=== PATIENT | female | born 1960 | race African-American/Black ===

== ENCOUNTER 2017-06-01 13:24 | Inpatient (IN) | payer MEDICAID ==
[~2017-06-01] VITALS: Ht 165.1 cm; Wt 90.4 kg
[~2017-06-01 13:24] MED LIST: AMLO10TA2 PO; ENA2.5T GT; ENAL-3; HYDR-2601 PO; LACT10SO32; METO25TA62; NOR10T; POTASSIUM CL; TRIA50TA2; ZOLP10TA6
[2017-06-01] MEDS ORDERED: ASPirin 81 mg TAB PO ONE (13:45)
[2017-06-01] MEDS ORDERED: MORPHINE SULF INJ 2 MG/ML SYRINGE 1ML IV ONE ×2 (14:00→18:15)
[2017-06-01] MEDS ORDERED: ONDANSETRON HCL 4 MG/2 ML VIAL IV ONE ×2 (14:00→18:15)
[2017-06-01 14:32] LABS: Basophils # (auto) 0.1 uL; Basophils % (auto) 0.5 % (0.0-2.0); Eosinophils # (auto) 0.1 uL; Eosinophils % (auto) 0.4 % (0.0-7.0); Hematocrit 36.9 % (36.0-46.0); Lymphocytes # (auto) 0.8 uL; Lymphocytes % (auto) 3.9 % (10.0-50.0); Mean Corpuscular Hemoglobin 27.9 pg (28.0-32.0); Mean Corpuscular Hgb Conc. 32.6 g/dL (32.0-36.0); Mean Corpuscular Volume 85.8 fL (80.0-100.0); Monocytes # (auto) 0.6 uL; Monocytes % (auto) 3.1 % (0.0-12.0); Neutrophils # (auto) 17.8 uL; Neutrophils % (auto) 92.1 % (37.0-80.0); Platelet Count (auto) 294 10^3/uL (140-450); Red Cell Distribution Width 14.5 % (11.8-14.3); White Blood Cell 19.3 10^3/uL (4.4-10.8)
[2017-06-01 14:58] LABS: Partial Thromboplastin Time 28.7 sec (22.64-33.71); Prothrombin Time 10.9 sec (9.37-12.3)
[2017-06-01 15:00] LABS: Urine Bacteria FEW /hpf (None Seen); Urine Blood 1+ /uL (Negative); Urine Mucus FEW (None Seen); Urine Specific Gravity 1.023 (1.001-1.035); Urine WBC 13 /hpf (0 - 5)
[2017-06-01 15:03] LABS: Albumin 2.6 g/dL (3.4-5.0); BUN/Creatinine Ratio 18.6; Bilirubin, Total 0.4 mg/dL (0.2-1.0); Calcium 9.1 mg/dL (8.5-10.1); Magnesium 2.4 mg/dL (1.6-2.6); Total Protein 8.2 g/dL (6.4-8.2)
[2017-06-01 15:20] LABS: Potassium 2.9 mmol/L (3.5-5.1)
[2017-06-01] MEDS ORDERED: IOHEXOL 350 MG/ML 100ML IJ ONE (15:24)
[2017-06-01] MEDS ORDERED: POTASSIUM CHL 20 Meq TABLET PO ONE ×3 (15:30→18:15)
[2017-06-01] MEDS ORDERED: SODIUM CHLORIDE 0.9% 1,000 ML IV ONE (15:30)
[2017-06-01] MEDS ORDERED: cefTRIAXone 1GM/10ml IVPUSH 10 ML IV ONE (15:30)
[2017-06-01] MEDS ORDERED: ALUM & MAG HYDROX-SIMETH LIQ(MAALOX) 30 ML PO PRN (18:30)
[2017-06-01] MEDS ORDERED: ONDANSETRON HCL 4 MG/2 ML VIAL IV PRN (18:30)
[2017-06-01] MEDS ORDERED: MORPHINE SULFATE 10 MG/ML INJ 1ML SDV IV PRN (18:30)
[2017-06-01] MEDS ORDERED: LORazepam 0.5 MG TAB PO PRN (18:30)
[2017-06-01] MEDS ORDERED: METOCLOPRAMIDE HCL 5MG/ml INJ 2ml VIAL IV PRN (18:30)
[2017-06-01] MEDS ORDERED: amLODIPine BESYLATE 5 MG TAB PO ONE (19:15)
[2017-06-01] MEDS ORDERED: ENALAPRIL MALEATE 10 MG TAB PO ONE (19:15)
[2017-06-01] MEDS ORDERED: TRIAMTERENE/HCTZ 75/50MG TABLET PO ONE (19:15)
[2017-06-01] MEDS ORDERED: METOPROLOL SUCCINATE XL 50 MG TAB PO ONE (19:15)
[2017-06-01 21:38] VITALS: BP 125/52
[2017-06-01 22:00] VITALS: BP 89/44
[2017-06-01] MEDS: MORPHINE SULFATE 10 MG/ML INJ 1ML SDV IV PRN (22:41)
[2017-06-01] MEDS ORDERED: CHOL20007 OR (23:51)
[2017-06-02] MEDS: MORPHINE SULFATE 10 MG/ML INJ 1ML SDV IV PRN ×2 (02:54→07:20)
[2017-06-02 05:00] VITALS: BP 100/64
[2017-06-02 07:25] LABS: Basophils # (auto) 0 uL; Basophils % (auto) 0.3 % (0.0-2.0); Eosinophils # (auto) 0.1 uL; Eosinophils % (auto) 0.3 % (0.0-7.0); Hematocrit 30.1 % (36.0-46.0); Lymphocytes # (auto) 0.7 uL; Lymphocytes % (auto) 4.5 % (10.0-50.0); Mean Corpuscular Hemoglobin 28.4 pg (28.0-32.0); Mean Corpuscular Hgb Conc. 33.2 g/dL (32.0-36.0); Mean Corpuscular Volume 85.5 fL (80.0-100.0); Monocytes % (auto) 6.4 % (0.0-12.0); Neutrophils # (auto) 14.6 uL; Neutrophils % (auto) 88.5 % (37.0-80.0); Platelet Count (auto) 252 10^3/uL (140-450); Red Blood Cells 3.52 10^6/uL (4.0-5.20); Red Cell Distribution Width 14.1 % (11.8-14.3); White Blood Cell 16.5 10^3/uL (4.4-10.8)
[2017-06-02 07:35] LABS: Albumin 2.1 g/dL (3.4-5.0); Calcium 8.6 mg/dL (8.5-10.1); Potassium 3.3 mmol/L (3.5-5.1)
[2017-06-02 07:38] LABS: Bilirubin, Total 0.5 mg/dL (0.2-1.0); Total Protein 6.9 g/dL (6.4-8.2)
[2017-06-02 08:19] VITALS: BP 114/86
[2017-06-02] MEDS: ACETAMINOPHEN 325 MG TAB PO PRN (08:25)
[2017-06-02] MEDS: ENALAPRIL MALEATE 10 MG TAB PO SCH (10:00)
[2017-06-02] MEDS: amLODIPine BESYLATE 5 MG TAB PO SCH (10:00)
[2017-06-02] MEDS: METOPROLOL SUCCINATE XL 50 MG TAB PO SCH (10:00)
[2017-06-02] MEDS: cefTRIAXone 1GM/10ml IVPUSH 10 ML IV SCH (10:17)
[2017-06-02] MEDS: POTASSIUM CHL 10 Meq TABLET PO SCH (10:18)
[2017-06-02] MEDS: TRIAMTERENE/HCTZ 75/50MG TABLET PO SCH (10:19)
[2017-06-02] MEDS: HYDROmorphone HCL 2 MG/ML VL IV PRN ×3 (11:33→19:38)
[2017-06-02] MEDS: ISOSORBIDE MONONITRATE 60 MG TAB PO SCH (11:41)
[2017-06-02 12:55] VITALS: BP 106/70
[2017-06-02] MEDS ORDERED: SODIUM CHLORIDE 0.9% 1,000 ML IV SCH (14:43)
[2017-06-02] MEDS ORDERED: diphenhdrAMINE HCL 50 MG/1 ML VL IV ONE (14:45)
[2017-06-02] MEDS: MULTIPLE VITAMIN TAB PO SCH (16:39)
[2017-06-02 16:59] VITALS: BP 113/65
[2017-06-02] MEDS: PRO-STAT 64 30ML PO SCH (18:00)
[2017-06-02] MEDS: ASCORBIC ACID 500 MG TAB PO SCH (21:22)
[2017-06-02 22:13] VITALS: BP 107/59
[2017-06-02] MEDS: TEMAZEPAM 15 MG CAP PO PRN (22:26)
[2017-06-03] MEDS: HYDROmorphone HCL 2 MG/ML VL IV PRN ×6 (00:01→21:00)
[2017-06-03 05:27] VITALS: BP 114/75
[2017-06-03] MEDS: SODIUM CHLORIDE 0.9% 1,000 ML IV SCH (06:07)
[2017-06-03] MEDS: PRO-STAT 64 30ML PO SCH ×2 (08:00→18:00)
[2017-06-03 09:09] VITALS: BP 94/50
[2017-06-03 09:13] LABS: Basophils # (auto) 0.1 uL; Basophils % (auto) 0.6 % (0.0-2.0); Eosinophils # (auto) 0.1 uL; Eosinophils % (auto) 1.4 % (0.0-7.0); Hematocrit 31.3 % (36.0-46.0); Hemoglobin 10.4 g/dL (12.2-16.2); Lymphocytes # (auto) 0.8 uL; Lymphocytes % (auto) 7.8 % (10.0-50.0); Mean Corpuscular Hemoglobin 28.4 pg (28.0-32.0); Mean Corpuscular Hgb Conc. 33.1 g/dL (32.0-36.0); Mean Corpuscular Volume 85.8 fL (80.0-100.0); Monocytes % (auto) 9.8 % (0.0-12.0); Neutrophils # (auto) 8.6 uL; Neutrophils % (auto) 80.4 % (37.0-80.0); Platelet Count (auto) 259 10^3/uL (140-450); Red Blood Cells 3.66 10^6/uL (4.0-5.20); Red Cell Distribution Width 14.3 % (11.8-14.3); White Blood Cell 10.7 10^3/uL (4.4-10.8)
[2017-06-03 09:28] LABS: Albumin 2.1 g/dL (3.4-5.0); BUN/Creatinine Ratio 18.4; Bilirubin, Total 0.3 mg/dL (0.2-1.0); Calcium 8.7 mg/dL (8.5-10.1); Potassium 3.3 mmol/L (3.5-5.1); Total Protein 7.3 g/dL (6.4-8.2)
[2017-06-03] MEDS: ENALAPRIL MALEATE 10 MG TAB PO SCH (10:00)
[2017-06-03] MEDS: ISOSORBIDE MONONITRATE 60 MG TAB PO SCH (10:00)
[2017-06-03] MEDS: METOPROLOL SUCCINATE XL 50 MG TAB PO SCH (10:00)
[2017-06-03] MEDS: amLODIPine BESYLATE 5 MG TAB PO SCH (10:00)
[2017-06-03] MEDS: TRIAMTERENE/HCTZ 75/50MG TABLET PO SCH (10:00)
[2017-06-03] MEDS: MULTIPLE VITAMIN TAB PO SCH (10:05)
[2017-06-03] MEDS: POTASSIUM CHL 10 Meq TABLET PO SCH (10:05)
[2017-06-03] MEDS: ASCORBIC ACID 500 MG TAB PO SCH ×2 (10:07→21:01)
[2017-06-03] MEDS: cefTRIAXone 1GM/10ml IVPUSH 10 ML IV SCH (10:10)
[2017-06-03] MEDS: HYDROcodone-ACET 5/325MG TAB PO PRN ×3 (10:18→19:49)
[2017-06-03 11:56] VITALS: BP 110/55
[2017-06-03 16:55] VITALS: BP 99/49
[2017-06-03 23:11] VITALS: BP 92/56
[2017-06-04] MEDS: HYDROcodone-ACET 5/325MG TAB PO PRN (00:22)
[2017-06-04] MEDS: TEMAZEPAM 15 MG CAP PO PRN ×2 (00:23→23:25)
[2017-06-04] MEDS: SODIUM CHLORIDE 0.9% 1,000 ML IV SCH ×2 (02:00→22:00)
[2017-06-04 02:21] VITALS: BP 103/58
[2017-06-04] MEDS: HYDROmorphone HCL 2 MG/ML VL IV PRN ×5 (02:30→21:06)
[2017-06-04 05:20] VITALS: BP 98/56
[2017-06-04 07:19] LABS: Basophils # (auto) 0 uL; Basophils % (auto) 0.3 % (0.0-2.0); Eosinophils # (auto) 0.2 uL; Eosinophils % (auto) 1.9 % (0.0-7.0); Hematocrit 30.3 % (36.0-46.0); Lymphocytes # (auto) 1.3 uL; Mean Corpuscular Hemoglobin 28.2 pg (28.0-32.0); Mean Corpuscular Hgb Conc. 32.9 g/dL (32.0-36.0); Mean Corpuscular Volume 85.8 fL (80.0-100.0); Monocytes % (auto) 9.5 % (0.0-12.0); Neutrophils # (auto) 7.8 uL; Neutrophils % (auto) 75.3 % (37.0-80.0); Platelet Count (auto) 253 10^3/uL (140-450); Red Blood Cells 3.53 10^6/uL (4.0-5.20); Red Cell Distribution Width 14.6 % (11.8-14.3); White Blood Cell 10.3 10^3/uL (4.4-10.8)
[2017-06-04 07:27] VITALS: BP 103/68
[2017-06-04 07:39] LABS: Albumin 1.9 g/dL (3.4-5.0); BUN/Creatinine Ratio 29.4; Bilirubin, Total 0.2 mg/dL (0.2-1.0); Calcium 8.5 mg/dL (8.5-10.1); Potassium 3.5 mmol/L (3.5-5.1)
[2017-06-04] MEDS: amLODIPine BESYLATE 5 MG TAB PO SCH (10:00)
[2017-06-04] MEDS ORDERED: ANGIOMAX 250 MG VIAL IV ONE (10:36)
[2017-06-04] MEDS ORDERED: MIDAZOLAM HCL 1MG/1ML-2 ML VIAL ONE (10:37)
[2017-06-04] MEDS ORDERED: fentaNYL CITRATE 100 MCG/2 ML VL ONE (10:37)
[2017-06-04] MEDS: PRO-STAT 64 30ML PO SCH ×2 (11:19→18:23)
[2017-06-04] MEDS: cefTRIAXone 1GM/10ml IVPUSH 10 ML IV SCH (11:20)
[2017-06-04] MEDS: METOPROLOL SUCCINATE XL 50 MG TAB PO SCH (11:21)
[2017-06-04] MEDS: POTASSIUM CHL 10 Meq TABLET PO SCH (11:22)
[2017-06-04] MEDS: ISOSORBIDE MONONITRATE 60 MG TAB PO SCH (11:22)
[2017-06-04] MEDS: MULTIPLE VITAMIN TAB PO SCH (11:23)
[2017-06-04] MEDS: ASCORBIC ACID 500 MG TAB PO SCH ×2 (11:23→23:25)
[2017-06-04] MEDS: TRIAMTERENE/HCTZ 75/50MG TABLET PO SCH (11:24)
[2017-06-04] MEDS: ENALAPRIL MALEATE 10 MG TAB PO SCH (11:26)
[2017-06-04 11:42] VITALS: BP 138/85
[2017-06-04 15:08] LABS: Free T4 (Free Thyroxine) 1.05 ng/dL (0.89-1.76); T3 Total 0.6 ng/mL (0.60-1.81)
[2017-06-04 15:18] LABS: BUN/Creatinine Ratio 19.5; Calcium 8.6 mg/dL (8.5-10.1); Potassium 3.7 mmol/L (3.5-5.1)
[2017-06-04 16:31] VITALS: BP 98/54
[2017-06-04 22:00] VITALS: BP 119/59
[2017-06-04] MEDS: ACETAMINOPHEN 325 MG TAB PO PRN (23:25)
[2017-06-05] MEDS: HYDROmorphone HCL 2 MG/ML VL IV PRN ×5 (04:20→20:53)
[2017-06-05 05:00] VITALS: BP 88/55
[2017-06-05] MEDS: NITROGLYCERIN 0.4 MG SL TAB SL PRN ×2 (07:06→07:24)
[2017-06-05 07:29] VITALS: BP 106/63
[2017-06-05] MEDS: PRO-STAT 64 30ML PO SCH ×2 (08:00→18:17)
[2017-06-05] MEDS: ASCORBIC ACID 500 MG TAB PO SCH ×2 (09:59→22:36)
[2017-06-05] MEDS: MULTIPLE VITAMIN TAB PO SCH (09:59)
[2017-06-05] MEDS: cefTRIAXone 1GM/10ml IVPUSH 10 ML IV SCH (09:59)
[2017-06-05] MEDS: POTASSIUM CHL 10 Meq TABLET PO SCH (09:59)
[2017-06-05] MEDS: TRIAMTERENE/HCTZ 75/50MG TABLET PO SCH (10:00)
[2017-06-05] MEDS: METOPROLOL SUCCINATE XL 50 MG TAB PO SCH (10:00)
[2017-06-05] MEDS: ENALAPRIL MALEATE 10 MG TAB PO SCH (10:00)
[2017-06-05] MEDS: amLODIPine BESYLATE 5 MG TAB PO SCH (10:01)
[2017-06-05] MEDS: ISOSORBIDE MONONITRATE 60 MG TAB PO SCH (10:01)
[2017-06-05 12:07] VITALS: BP 92/43
[2017-06-05 14:20] LABS: Urine Bacteria NONE SEEN /hpf (None Seen); Urine Blood 1+ /uL (Negative); Urine Mucus FEW (None Seen); Urine Specific Gravity 1.021 (1.001-1.035); Urine WBC 13 /hpf (0 - 5)
[2017-06-05] MEDS: NICOTINE 21MG/24 HR TOPICAL PATCH TD SCH (14:34)
[2017-06-05] MEDS: HYDROcodone-ACET 5/325MG TAB PO PRN ×2 (14:52→19:45)
[2017-06-05 16:39] VITALS: BP 92/52
[2017-06-05] MEDS: SODIUM CHLORIDE 0.9% 1,000 ML IV SCH (18:17)
[2017-06-05 22:00] VITALS: BP 123/68
[2017-06-05] MEDS: TEMAZEPAM 15 MG CAP PO PRN (22:36)
[2017-06-06] MEDS: HYDROmorphone HCL 2 MG/ML VL IV PRN ×5 (00:54→20:52)
[2017-06-06 05:00] VITALS: BP 95/61
[2017-06-06 06:01] LABS: Cholesterol 121 mg/dL (< 200); HDL Cholesterol 16 mg/dL (40-59); LDL Cholesterol 85 mg/dL (< 100); Triglycerides 186 mg/dL (< 150)
[2017-06-06 08:00] VITALS: BP 96/58
[2017-06-06] MEDS: PRO-STAT 64 30ML PO SCH ×2 (08:00→18:02)
[2017-06-06] MEDS: cefTRIAXone 1GM/10ml IVPUSH 10 ML IV SCH (09:33)
[2017-06-06] MEDS: ISOSORBIDE MONONITRATE 60 MG TAB PO SCH (09:34)
[2017-06-06] MEDS: ENALAPRIL MALEATE 10 MG TAB PO SCH (10:00)
[2017-06-06] MEDS: METOPROLOL SUCCINATE XL 50 MG TAB PO SCH (10:00)
[2017-06-06] MEDS: MULTIPLE VITAMIN TAB PO SCH (10:00)
[2017-06-06] MEDS: ASCORBIC ACID 500 MG TAB PO SCH ×2 (10:00→21:57)
[2017-06-06] MEDS: amLODIPine BESYLATE 5 MG TAB PO SCH (10:00)
[2017-06-06] MEDS: POTASSIUM CHL 10 Meq TABLET PO SCH (10:00)
[2017-06-06] MEDS: TRIAMTERENE/HCTZ 75/50MG TABLET PO SCH (10:00)
[2017-06-06] MEDS: NITROGLYCERIN 0.4 MG SL TAB SL PRN (10:48)
[2017-06-06] MEDS: NICOTINE 21MG/24 HR TOPICAL PATCH TD SCH (10:54)
[2017-06-06 11:50] VITALS: BP 106/49
[2017-06-06] MEDS ORDERED: LIDOCAINE 2%HCL (LOCAL ANESTH.) INJ 20ML MDV ONE (11:57)
[2017-06-06] MEDS ORDERED: IOHEXOL 350 MG/ML 100ML IJ ONE (11:57)
[2017-06-06] MEDS ORDERED: ANGIOMAX 250 MG VIAL IV ONE (12:47)
[2017-06-06] MEDS ORDERED: fentaNYL CITRATE 100 MCG/2 ML VL ONE (12:48)
[2017-06-06] MEDS ORDERED: SODIUM CHL 0.9% 0 ML ONE (12:48)
[2017-06-06] MEDS ORDERED: MIDAZOLAM HCL 1MG/1ML-2 ML VIAL ONE (12:48)
[2017-06-06] MEDS ORDERED: VERAPAMIL 2.5MG/ML INJ 2ML VIAL IV ONE (13:06)
[2017-06-06] MEDS ORDERED: VANCOMYCIN PER PHARMACY 0 MG IV SCH (14:45)
[2017-06-06 17:10] VITALS: BP 116/74
[2017-06-06] MEDS: VANCOMYCIN 750 MG in D5W 5% 250 ML IV SCH (18:24)
[2017-06-06 21:56] VITALS: BP 102/53
[2017-06-06] MEDS: DOCUSATE SOD 100 MG CAP PO PRN (21:57)
[2017-06-06] MEDS: ATORVASTATIN 20 MG TAB PO SCH (21:57)
[2017-06-06] MEDS: TEMAZEPAM 15 MG CAP PO PRN (22:03)
[2017-06-07] MEDS: HYDROmorphone HCL 2 MG/ML VL IV PRN ×6 (01:53→22:40)
[2017-06-07] MEDS: VANCOMYCIN 750 MG in D5W 5% 250 ML IV SCH ×2 (01:53→11:08)
[2017-06-07 04:28] VITALS: BP 115/56
[2017-06-07 06:21] LABS: Basophils # (auto) 0 uL; Basophils % (auto) 0.4 % (0.0-2.0); Eosinophils # (auto) 0.2 uL; Eosinophils % (auto) 1.8 % (0.0-7.0); Hematocrit 30.8 % (36.0-46.0); Lymphocytes # (auto) 2.1 uL; Lymphocytes % (auto) 16.4 % (10.0-50.0); Mean Corpuscular Hemoglobin 27.8 pg (28.0-32.0); Mean Corpuscular Hgb Conc. 32.6 g/dL (32.0-36.0); Mean Corpuscular Volume 85.3 fL (80.0-100.0); Monocytes # (auto) 1.4 uL; Monocytes % (auto) 10.8 % (0.0-12.0); Neutrophils # (auto) 8.8 uL; Neutrophils % (auto) 70.6 % (37.0-80.0); Nucleated Red Blood Cells % 0.1 %; Platelet Count (auto) 232 10^3/uL (140-450); Red Blood Cells 3.61 10^6/uL (4.0-5.20); Red Cell Distribution Width 14.9 % (11.8-14.3); White Blood Cell 12.5 10^3/uL (4.4-10.8)
[2017-06-07] MEDS: PRO-STAT 64 30ML PO SCH ×2 (08:06→18:10)
[2017-06-07 08:10] VITALS: BP 103/64
[2017-06-07] MEDS: ENALAPRIL MALEATE 10 MG TAB PO SCH (10:00)
[2017-06-07] MEDS: amLODIPine BESYLATE 5 MG TAB PO SCH (10:15)
[2017-06-07] MEDS: ASCORBIC ACID 500 MG TAB PO SCH ×2 (10:15→21:57)
[2017-06-07] MEDS: ISOSORBIDE MONONITRATE 60 MG TAB PO SCH (10:15)
[2017-06-07] MEDS: MULTIPLE VITAMIN TAB PO SCH (10:15)
[2017-06-07] MEDS: TRIAMTERENE/HCTZ 75/50MG TABLET PO SCH (10:15)
[2017-06-07] MEDS: POTASSIUM CHL 10 Meq TABLET PO SCH (10:16)
[2017-06-07] MEDS: NICOTINE 21MG/24 HR TOPICAL PATCH TD SCH (10:17)
[2017-06-07] MEDS: METOPROLOL SUCCINATE XL 50 MG TAB PO SCH (10:17)
[2017-06-07] MEDS: cefTRIAXone 1GM/10ml IVPUSH 10 ML IV SCH (11:08)
[2017-06-07 12:35] VITALS: BP 120/72
[2017-06-07] MEDS ORDERED: CLINDAMYCIN 600MG IV 50 ML IV ONE (15:30)
[2017-06-07] MEDS: DOCUSATE SOD 100 MG CAP PO PRN (16:46)
[2017-06-07 16:58] VITALS: BP 105/58
[2017-06-07] MEDS: ATORVASTATIN 20 MG TAB PO SCH (21:57)
[2017-06-07] MEDS: CLINDAMYCIN 600MG IV 50 ML IV SCH (21:57)
[2017-06-07 22:00] VITALS: BP 105/60
[2017-06-07] MEDS: TEMAZEPAM 15 MG CAP PO PRN (22:40)
[2017-06-08] MEDS: HYDROmorphone HCL 2 MG/ML VL IV PRN ×5 (03:32→20:09)
[2017-06-08] MEDS: CLINDAMYCIN 600MG IV 50 ML IV SCH (05:33)
[2017-06-08 05:36] VITALS: BP 112/60
[2017-06-08 08:46] VITALS: BP 146/90
[2017-06-08] MEDS: PRO-STAT 64 30ML PO SCH ×2 (09:03→18:04)
[2017-06-08 09:04] VITALS: BP 129/80
[2017-06-08] MEDS ORDERED: MAGNESIUM CITRATE SOLUTION 300 ML BTL PO ONE (10:00)
[2017-06-08] MEDS: ceFAZolin 1GM/50ML 50 ML IV SCH ×3 (10:01→21:19)
[2017-06-08] MEDS: POTASSIUM CHL 10 Meq TABLET PO SCH (10:02)
[2017-06-08] MEDS: ISOSORBIDE MONONITRATE 60 MG TAB PO SCH (10:02)
[2017-06-08] MEDS: MULTIPLE VITAMIN TAB PO SCH (10:02)
[2017-06-08] MEDS: ASCORBIC ACID 500 MG TAB PO SCH ×2 (10:02→21:19)
[2017-06-08] MEDS: DOCUSATE SOD 100 MG CAP PO PRN (10:02)
[2017-06-08] MEDS: TRIAMTERENE/HCTZ 75/50MG TABLET PO SCH (10:03)
[2017-06-08] MEDS: amLODIPine BESYLATE 5 MG TAB PO SCH (10:03)
[2017-06-08] MEDS: METOPROLOL SUCCINATE XL 50 MG TAB PO SCH (10:04)
[2017-06-08] MEDS: ENALAPRIL MALEATE 10 MG TAB PO SCH (10:04)
[2017-06-08] MEDS: NICOTINE 21MG/24 HR TOPICAL PATCH TD SCH (10:05)
[2017-06-08 13:06] VITALS: BP 111/71
[2017-06-08 17:02] VITALS: BP 111/71
[2017-06-08] MEDS: ACETAMINOPHEN 325 MG TAB PO PRN (17:09)
[2017-06-08] MEDS: DOCUSATE SOD 100 MG CAP PO SCH (21:12)
[2017-06-08] MEDS: ATORVASTATIN 20 MG TAB PO SCH (21:19)
[2017-06-08 21:32] VITALS: BP 95/58
[2017-06-09] MEDS: HYDROmorphone HCL 2 MG/ML VL IV PRN ×6 (00:16→20:45)
[2017-06-09] MEDS: ceFAZolin 1GM/50ML 50 ML IV SCH ×4 (04:18→21:06)
[2017-06-09 04:50] VITALS: BP 94/53
[2017-06-09 08:00] VITALS: BP 126/80
[2017-06-09 08:31] VITALS: BP 126/80
[2017-06-09] MEDS: DOCUSATE SOD 100 MG CAP PO SCH ×2 (10:00→21:01)
[2017-06-09] MEDS: TRIAMTERENE/HCTZ 75/50MG TABLET PO SCH (10:00)
[2017-06-09] MEDS: ISOSORBIDE MONONITRATE 60 MG TAB PO SCH (10:28)
[2017-06-09] MEDS: ASCORBIC ACID 500 MG TAB PO SCH ×2 (10:28→21:06)
[2017-06-09] MEDS: amLODIPine BESYLATE 5 MG TAB PO SCH (10:29)
[2017-06-09] MEDS: ENALAPRIL MALEATE 10 MG TAB PO SCH (10:29)
[2017-06-09] MEDS: MULTIPLE VITAMIN TAB PO SCH (10:29)
[2017-06-09] MEDS: POTASSIUM CHL 10 Meq TABLET PO SCH (10:30)
[2017-06-09] MEDS: METOPROLOL SUCCINATE XL 50 MG TAB PO SCH (10:30)
[2017-06-09] MEDS: NICOTINE 21MG/24 HR TOPICAL PATCH TD SCH (10:30)
[2017-06-09] MEDS: PRO-STAT 64 30ML PO SCH ×2 (10:31→19:00)
[2017-06-09 12:59] VITALS: BP 103/56
[2017-06-09] MEDS ORDERED: methylPREDNISolone SOD SUCC 125 MG/2 ML VL ONE (13:57)
[2017-06-09] MEDS ORDERED: diphenhdrAMINE HCL 50 MG/1 ML VL ONE (13:57)
[2017-06-09] MEDS ORDERED: methylPREDNISolone SOD SUCC 125 MG/2 ML VL IV ONE (14:00)
[2017-06-09] MEDS ORDERED: diphenhdrAMINE HCL 50 MG/1 ML VL IV ONE (14:00)
[2017-06-09] MEDS: diphenhdrAMINE HCL 50 MG/1 ML VL IV PRN (15:14)
[2017-06-09 17:23] VITALS: BP 97/64
[2017-06-09] MEDS: ATORVASTATIN 20 MG TAB PO SCH (21:06)
[2017-06-09 22:00] VITALS: BP 101/43
[2017-06-10] MEDS: HYDROmorphone HCL 2 MG/ML VL IV PRN ×6 (00:48→21:19)
[2017-06-10] MEDS: ceFAZolin 1GM/50ML 50 ML IV SCH ×4 (04:57→21:30)
[2017-06-10 05:00] VITALS: BP 105/61
[2017-06-10 06:44] LABS: Basophils # (auto) 0 uL; Basophils % (auto) 0.2 % (0.0-2.0); Eosinophils # (auto) 0 uL; Hematocrit 38.2 % (36.0-46.0); Hemoglobin 12.5 g/dL (12.2-16.2); Lymphocytes # (auto) 1.6 uL; Lymphocytes % (auto) 5.8 % (10.0-50.0); Mean Corpuscular Hemoglobin 27.6 pg (28.0-32.0); Mean Corpuscular Hgb Conc. 32.6 g/dL (32.0-36.0); Mean Corpuscular Volume 84.7 fL (80.0-100.0); Monocytes # (auto) 0.8 uL; Monocytes % (auto) 2.7 % (0.0-12.0); Neutrophils # (auto) 25.2 uL; Neutrophils % (auto) 91.3 % (37.0-80.0); Platelet Count (auto) 388 10^3/uL (140-450); Red Blood Cells 4.51 10^6/uL (4.0-5.20); White Blood Cell 27.6 10^3/uL (4.4-10.8)
[2017-06-10 08:00] VITALS: BP 152/59
[2017-06-10 08:27] VITALS: BP 152/59
[2017-06-10] MEDS: TRIAMTERENE/HCTZ 75/50MG TABLET PO SCH (09:01)
[2017-06-10] MEDS: POTASSIUM CHL 10 Meq TABLET PO SCH (09:01)
[2017-06-10] MEDS: METOPROLOL SUCCINATE XL 50 MG TAB PO SCH (09:02)
[2017-06-10] MEDS: ENALAPRIL MALEATE 10 MG TAB PO SCH (09:02)
[2017-06-10] MEDS: amLODIPine BESYLATE 5 MG TAB PO SCH (09:03)
[2017-06-10] MEDS: MULTIPLE VITAMIN TAB PO SCH (09:03)
[2017-06-10] MEDS: ISOSORBIDE MONONITRATE 60 MG TAB PO SCH (09:03)
[2017-06-10] MEDS: ASCORBIC ACID 500 MG TAB PO SCH ×2 (09:03→21:31)
[2017-06-10] MEDS: NICOTINE 21MG/24 HR TOPICAL PATCH TD SCH (09:04)
[2017-06-10] MEDS: PRO-STAT 64 30ML PO SCH ×2 (09:08→18:32)
[2017-06-10] MEDS: DOCUSATE SOD 100 MG CAP PO SCH ×2 (10:00→21:30)
[2017-06-10] MEDS: diphenhdrAMINE HCL 50 MG/1 ML VL IV PRN ×3 (10:38→18:32)
[2017-06-10 13:42] VITALS: BP 96/49
[2017-06-10 17:00] VITALS: BP 101/62
[2017-06-10] MEDS: ATORVASTATIN 20 MG TAB PO SCH (21:30)
[2017-06-10 22:00] VITALS: BP 102/63
[2017-06-11] VITALS (7 sets, daily range): BP systolic 86–108; BP diastolic 53–69
[2017-06-11] MEDS: diphenhdrAMINE HCL 50 MG/1 ML VL IV PRN ×2 (00:15→07:26)
[2017-06-11] MEDS: HYDROmorphone HCL 2 MG/ML VL IV PRN ×6 (01:54→23:20)
[2017-06-11] MEDS: ceFAZolin 1GM/50ML 50 ML IV SCH (04:00)
[2017-06-11] MEDS ORDERED: METOPROLOL SUCCINATE XL 50 MG TAB PO SCH (10:00)
[2017-06-11] MEDS: NICOTINE 21MG/24 HR TOPICAL PATCH TD SCH (10:00)
[2017-06-11] MEDS ORDERED: TEMAZEPAM 15 MG CAP PO PRN (10:00)
[2017-06-11] MEDS: DOCUSATE SOD 100 MG CAP PO SCH ×2 (10:00→22:00)
[2017-06-11] MEDS ORDERED: ENALAPRIL MALEATE 10 MG TAB PO SCH (10:00)
[2017-06-11] MEDS: PRO-STAT 64 30ML PO SCH ×2 (10:28→18:00)
[2017-06-11] MEDS: ASCORBIC ACID 500 MG TAB PO SCH ×2 (10:41→22:14)
[2017-06-11] MEDS: MULTIPLE VITAMIN TAB PO SCH (10:41)
[2017-06-11] MEDS: ISOSORBIDE MONONITRATE 60 MG TAB PO SCH (10:42)
[2017-06-11] MEDS: ACETAMINOPHEN 325 MG TAB PO PRN (12:12)
[2017-06-11] MEDS: CLINDAMYCIN 600MG IV 50 ML IV SCH ×2 (12:12→19:59)
[2017-06-11 12:46] LABS: Basophils # (auto) 0 uL; Basophils % (auto) 0.2 % (0.0-2.0); Eosinophils # (auto) 0.1 uL; Eosinophils % (auto) 0.4 % (0.0-7.0); Hemoglobin 10.4 g/dL (12.2-16.2); Lymphocytes # (auto) 1.9 uL; Lymphocytes % (auto) 9.9 % (10.0-50.0); Mean Corpuscular Hemoglobin 27.6 pg (28.0-32.0); Mean Corpuscular Hgb Conc. 32.4 g/dL (32.0-36.0); Mean Corpuscular Volume 85.3 fL (80.0-100.0); Monocytes # (auto) 1.1 uL; Monocytes % (auto) 5.7 % (0.0-12.0); Neutrophils # (auto) 15.7 uL; Neutrophils % (auto) 83.8 % (37.0-80.0); Platelet Count (auto) 360 10^3/uL (140-450); Red Blood Cells 3.75 10^6/uL (4.0-5.20); White Blood Cell 18.7 10^3/uL (4.4-10.8)
[2017-06-11 13:03] LABS: BUN/Creatinine Ratio 37.5; Calcium 8.6 mg/dL (8.5-10.1); Potassium 3.9 mmol/L (3.5-5.1)
[2017-06-11] MEDS: ATORVASTATIN 20 MG TAB PO SCH (22:14)
[2017-06-12] MEDS: CLINDAMYCIN 600MG IV 50 ML IV SCH ×3 (04:20→20:00)
[2017-06-12] MEDS: HYDROmorphone HCL 2 MG/ML VL IV PRN ×5 (04:51→22:20)
[2017-06-12 05:00] VITALS: BP 99/59
[2017-06-12 07:31] LABS: Basophils # (auto) 0 uL; Basophils % (auto) 0.3 % (0.0-2.0); Eosinophils # (auto) 0.1 uL; Hemoglobin 9.9 g/dL (12.2-16.2); Lymphocytes # (auto) 2.6 uL; Lymphocytes % (auto) 18.9 % (10.0-50.0); Mean Corpuscular Hemoglobin 27.4 pg (28.0-32.0); Mean Corpuscular Hgb Conc. 32.1 g/dL (32.0-36.0); Mean Corpuscular Volume 85.4 fL (80.0-100.0); Monocytes % (auto) 7.3 % (0.0-12.0); Neutrophils % (auto) 72.5 % (37.0-80.0); Platelet Count (auto) 351 10^3/uL (140-450); Red Blood Cells 3.63 10^6/uL (4.0-5.20); Red Cell Distribution Width 14.9 % (11.8-14.3); White Blood Cell 13.7 10^3/uL (4.4-10.8)
[2017-06-12 07:54] LABS: BUN/Creatinine Ratio 44.4; Calcium 8.7 mg/dL (8.5-10.1); Potassium 3.8 mmol/L (3.5-5.1)
[2017-06-12 08:00] VITALS: BP 97/63
[2017-06-12] MEDS: PRO-STAT 64 30ML PO SCH ×2 (08:00→17:23)
[2017-06-12] MEDS ORDERED: ALBUMIN 25% 100 ML IV ONE (08:30)
[2017-06-12 08:33] VITALS: BP 97/63
[2017-06-12 08:49] LABS: Albumin 2.1 g/dL (3.4-5.0); Pre Albumin 19.4 mg/dL (20.0-40.0)
[2017-06-12] MEDS: NICOTINE 21MG/24 HR TOPICAL PATCH TD SCH (09:13)
[2017-06-12] MEDS: DOCUSATE SOD 100 MG CAP PO SCH ×2 (09:15→22:14)
[2017-06-12] MEDS: MULTIPLE VITAMIN TAB PO SCH (09:15)
[2017-06-12] MEDS: ASCORBIC ACID 500 MG TAB PO SCH ×2 (09:15→22:15)
[2017-06-12] MEDS: ISOSORBIDE MONONITRATE 60 MG TAB PO SCH (09:15)
[2017-06-12] MEDS: SOD CHL 0.9%/ KCL 40MEQ 1,000 ML IV SCH ×2 (09:16→17:23)
[2017-06-12 12:42] VITALS: BP 101/59
[2017-06-12 16:39] VITALS: BP 111/69
[2017-06-12] MEDS: HYDROcodone-ACET 5/325MG TAB PO PRN (20:07)
[2017-06-12 21:44] VITALS: BP 119/97
[2017-06-12] MEDS: ATORVASTATIN 20 MG TAB PO SCH (22:14)
[2017-06-13] VITALS (7 sets, daily range): BP systolic 90–144; BP diastolic 51–81
[2017-06-13] MEDS ORDERED: HYDROmorphone HCL 2 MG/ML VL ONE (02:42)
[2017-06-13] MEDS: HYDROmorphone HCL 2 MG/ML VL IV PRN (03:00)
[2017-06-13] MEDS: CLINDAMYCIN 600MG IV 50 ML IV SCH ×3 (04:12→20:11)
[2017-06-13] MEDS: SOD CHL 0.9%/ KCL 40MEQ 1,000 ML IV SCH ×2 (04:30→14:38)
[2017-06-13] MEDS ORDERED: GLYCOPYRROLATE 0.2 MG/ML 1ML VIAL IV ONE (07:40)
[2017-06-13] MEDS ORDERED: NEOSTIGMINE 1 MG/ML INJ (10mg/10ML VIAL) IV ONE (07:40)
[2017-06-13] MEDS ORDERED: SUCCINYLCHOLINE CHLORIDE 20 MG/ML 10ML VIAL IV ONE (07:44)
[2017-06-13] MEDS ORDERED: MIDAZOLAM HCL 1MG/1ML-2 ML VIAL ONE (07:50)
[2017-06-13] MEDS ORDERED: ROCURONIUM 10MG/ML 10ML VIAL IV ONE (07:50)
[2017-06-13] MEDS ORDERED: fentaNYL CITRATE 100 MCG/2 ML VL ONE (07:50)
[2017-06-13] MEDS ORDERED: PROPOFOL 10 MG/ML 20 ML IV ONE (07:53)
[2017-06-13] MEDS: PRO-STAT 64 30ML PO SCH ×2 (08:00→17:21)
[2017-06-13] MEDS ORDERED: ePHEDrine SULFATE 50 MG/ML AMP IV PRN (09:30)
[2017-06-13] MEDS ORDERED: ONDANSETRON HCL 4 MG/2 ML VIAL IV ONE (09:30)
[2017-06-13] MEDS ORDERED: hydrALAZINE HCL 20 MG/ML VL IV PRN (09:30)
[2017-06-13] MEDS ORDERED: HYDROmorphone HCL 2 MG/ML VL IV PRN (09:30)
[2017-06-13] MEDS: MULTIPLE VITAMIN TAB PO SCH ×2 (10:00→11:19)
[2017-06-13] MEDS: ASCORBIC ACID 500 MG TAB PO SCH ×3 (10:00→22:18)
[2017-06-13] MEDS: DOCUSATE SOD 100 MG CAP PO SCH ×2 (10:00→22:17)
[2017-06-13] MEDS: ISOSORBIDE MONONITRATE 60 MG TAB PO SCH ×2 (10:00→11:19)
[2017-06-13] MEDS: MORPHINE SULFATE 10 MG/ML INJ 1ML SDV IV PRN ×3 (11:18→18:01)
[2017-06-13] MEDS: NICOTINE 21MG/24 HR TOPICAL PATCH TD SCH (11:18)
[2017-06-13] MEDS ORDERED: IPRATROPIUM BROM 0.5 MG/2.5ML INH SOL NEB PRN (12:00)
[2017-06-13] MEDS ORDERED: IPRATROPIUM BROM 0.5 MG/2.5ML INH SOL NEB ONE (12:00)
[2017-06-13] MEDS ORDERED: ALBUTEROL SULF 2.5 MG/0.5ML(0.5%) NEB SOLN NEB PRN (12:00)
[2017-06-13] MEDS ORDERED: ALBUTEROL SULF 2.5 MG/0.5ML(0.5%) NEB SOLN NEB ONE (12:00)
[2017-06-13] MEDS ORDERED: ALBUTEROL SULF 2.5 MG/0.5ML(0.5%) NEB SOLN ONE (12:06)
[2017-06-13] MEDS ORDERED: IPRATROPIUM BROM 0.5 MG/2.5ML INH SOL ONE (12:06)
[2017-06-13] MEDS: HYDROcodone-ACET 5/325MG TAB PO PRN (16:35)
[2017-06-13] MEDS: LORazepam 0.5 MG TAB PO PRN (20:12)
[2017-06-13] MEDS: ATORVASTATIN 20 MG TAB PO SCH (22:17)
[2017-06-14] MEDS: MORPHINE SULFATE 10 MG/ML INJ 1ML SDV IV PRN ×8 (00:03→22:31)
[2017-06-14] MEDS: HYDROcodone-ACET 5/325MG TAB PO PRN ×2 (00:36→07:36)
[2017-06-14] MEDS: SOD CHL 0.9%/ KCL 40MEQ 1,000 ML IV SCH (00:36)
[2017-06-14] MEDS: CLINDAMYCIN 600MG IV 50 ML IV SCH ×3 (03:41→20:26)
[2017-06-14 05:08] VITALS: BP 103/68
[2017-06-14 08:00] VITALS: BP 100/60
[2017-06-14] MEDS: PRO-STAT 64 30ML PO SCH ×2 (08:00→18:00)
[2017-06-14] MEDS: HYDROcodone-ACET 10/325MG TAB PO PRN ×4 (09:56→18:26)
[2017-06-14] MEDS: METOPROLOL SUCCINATE XL 50 MG TAB PO SCH (10:00)
[2017-06-14] MEDS: ENALAPRIL MALEATE 2.5 MG TAB PO SCH (10:00)
[2017-06-14] MEDS: ISOSORBIDE MONONITRATE 60 MG TAB PO SCH (10:00)
[2017-06-14] MEDS: DOCUSATE SOD 100 MG CAP PO SCH ×2 (10:10→22:16)
[2017-06-14] MEDS: MULTIPLE VITAMIN TAB PO SCH (10:10)
[2017-06-14] MEDS: NICOTINE 21MG/24 HR TOPICAL PATCH TD SCH (10:12)
[2017-06-14] MEDS: ASCORBIC ACID 500 MG TAB PO SCH ×2 (10:16→22:16)
[2017-06-14] MEDS ORDERED: ALUM & MAG HYDROX-SIMETH LIQ(MAALOX) 30 ML PO PRN (10:30)
[2017-06-14] MEDS ORDERED: ACETAMINOPHEN 325 MG TAB PO PRN (10:30)
[2017-06-14] MEDS ORDERED: ONDANSETRON HCL 4 MG/2 ML VIAL IV PRN (10:30)
[2017-06-14 13:00] VITALS: BP 98/55
[2017-06-14] MEDS: LORazepam 0.5 MG TAB PO PRN (13:25)
[2017-06-14] MEDS ORDERED: MORPHINE SULF INJ 2 MG/ML SYRINGE 1ML ONE (16:00)
[2017-06-14 16:41] VITALS: BP 112/60
[2017-06-14 20:00] VITALS: BP 111/63
[2017-06-14] MEDS: ATORVASTATIN 20 MG TAB PO SCH (22:16)
[2017-06-14] MEDS ORDERED: MORPHINE SULFATE 4 MG/ML SYR/VIAL ONE (22:21)
[2017-06-14 22:23] VITALS: BP 111/63
[2017-06-15] MEDS ORDERED: MORPHINE SULFATE 4 MG/ML SYR/VIAL ONE ×4 (01:34→20:55)
[2017-06-15] MEDS: MORPHINE SULFATE 10 MG/ML INJ 1ML SDV IV PRN ×2 (01:42→04:54)
[2017-06-15] MEDS: CLINDAMYCIN 600MG IV 50 ML IV SCH (03:40)
[2017-06-15 05:38] VITALS: BP 101/63
[2017-06-15 05:46] LABS: Basophils # (auto) 0 uL; Basophils % (auto) 0.4 % (0.0-2.0); Eosinophils # (auto) 0.2 uL; Eosinophils % (auto) 1.4 % (0.0-7.0); Hematocrit 27.2 % (36.0-46.0); Hemoglobin 8.9 g/dL (12.2-16.2); Lymphocytes # (auto) 2.6 uL; Mean Corpuscular Hemoglobin 27.9 pg (28.0-32.0); Mean Corpuscular Hgb Conc. 32.7 g/dL (32.0-36.0); Mean Corpuscular Volume 85.3 fL (80.0-100.0); Monocytes # (auto) 0.7 uL; Monocytes % (auto) 5.5 % (0.0-12.0); Neutrophils # (auto) 8.9 uL; Neutrophils % (auto) 71.7 % (37.0-80.0); Platelet Count (auto) 311 10^3/uL (140-450); Red Blood Cells 3.19 10^6/uL (4.0-5.20); Red Cell Distribution Width 14.6 % (11.8-14.3); White Blood Cell 12.4 10^3/uL (4.4-10.8)
[2017-06-15 06:02] LABS: Calcium 8.9 mg/dL (8.5-10.1); Potassium 3.8 mmol/L (3.5-5.1)
[2017-06-15] MEDS: HYDROcodone-ACET 10/325MG TAB PO PRN ×5 (07:07→22:15)
[2017-06-15 08:51] VITALS: BP 91/58
[2017-06-15] MEDS: PRO-STAT 64 30ML PO SCH (09:57)
[2017-06-15] MEDS: ISOSORBIDE MONONITRATE 60 MG TAB PO SCH (10:00)
[2017-06-15] MEDS: ENALAPRIL MALEATE 2.5 MG TAB PO SCH (10:00)
[2017-06-15] MEDS: METOPROLOL SUCCINATE XL 50 MG TAB PO SCH (10:00)
[2017-06-15] MEDS: MULTIPLE VITAMIN TAB PO SCH (10:13)
[2017-06-15] MEDS: ASCORBIC ACID 500 MG TAB PO SCH ×2 (10:13→22:02)
[2017-06-15] MEDS: DOCUSATE SOD 100 MG CAP PO SCH ×2 (10:13→22:02)
[2017-06-15] MEDS: NICOTINE 21MG/24 HR TOPICAL PATCH TD SCH (10:13)
[2017-06-15] MEDS ORDERED: ASCO500T11 PO (10:23)
[2017-06-15] MEDS ORDERED: ENA2.5T PO (10:23)
[2017-06-15] MEDS ORDERED: ATOR20TA50 PO (10:23)
[2017-06-15] MEDS ORDERED: DOCU100C8 PO (10:23)
[2017-06-15] MEDS ORDERED: NIC21P TD (10:23)
[2017-06-15] MEDS ORDERED: MULTTAB99 PO (10:23)
[2017-06-15] MEDS ORDERED: METO50TA7 PO (10:23)
[2017-06-15] MEDS ORDERED: ASCORBIC ACID 500 MG TAB PO ONE (10:30)
[2017-06-15] MEDS ORDERED: ISOSORBIDE MONONITRATE 60 MG TAB PO ONE (10:30)
[2017-06-15] MEDS: MORPHINE SULF INJ 2 MG/ML SYRINGE 1ML IV PRN ×4 (11:04→21:01)
[2017-06-15] MEDS: HYDROmorphone HCL 2 MG/ML VL IV PRN ×2 (11:50→16:15)
[2017-06-15 13:00] VITALS: BP 99/59
[2017-06-15] MEDS: CLINDAMYCIN HCL 150 MG CAP PO SCH ×2 (14:40→22:02)
[2017-06-15 17:00] VITALS: BP 96/62
[2017-06-15] MEDS: LEVOFLOXACIN 500 MG TAB PO SCH (17:49)
[2017-06-15 20:00] VITALS: BP 110/64
[2017-06-15] MEDS: ATORVASTATIN 20 MG TAB PO SCH (22:02)
[2017-06-15 22:49] VITALS: BP 110/64
[2017-06-16] MEDS: HYDROmorphone HCL 2 MG/ML VL IV PRN ×6 (00:16→18:52)
[2017-06-16 04:47] VITALS: BP 106/59
[2017-06-16] MEDS: CLINDAMYCIN HCL 150 MG CAP PO SCH ×3 (06:00→21:08)
[2017-06-16] MEDS: HYDROcodone-ACET 10/325MG TAB PO PRN ×4 (06:28→18:13)
[2017-06-16] MEDS: diphenhdrAMINE HCL 50 MG/1 ML VL IV PRN ×3 (06:28→20:53)
[2017-06-16] MEDS: PRO-STAT 64 30ML PO SCH ×3 (08:00→18:10)
[2017-06-16 09:00] VITALS: BP 121/70
[2017-06-16] MEDS ORDERED: ISOSORBIDE MONONITRATE 60 MG TAB PO SCH (10:00)
[2017-06-16] MEDS: ENALAPRIL MALEATE 2.5 MG TAB PO SCH (10:00)
[2017-06-16] MEDS: METOPROLOL SUCCINATE XL 50 MG TAB PO SCH (10:00)
[2017-06-16] MEDS: NICOTINE 21MG/24 HR TOPICAL PATCH TD SCH (10:13)
[2017-06-16] MEDS: ASCORBIC ACID 500 MG TAB PO SCH ×2 (10:14→21:09)
[2017-06-16] MEDS: LEVOFLOXACIN 500 MG TAB PO SCH (10:14)
[2017-06-16] MEDS: DOCUSATE SOD 100 MG CAP PO SCH ×2 (10:14→21:09)
[2017-06-16] MEDS: MULTIPLE VITAMIN TAB PO SCH (10:14)
[2017-06-16 12:31] VITALS: BP 110/65
[2017-06-16 16:43] VITALS: BP 93/55
[2017-06-16] MEDS: ATORVASTATIN 20 MG TAB PO SCH (21:09)
[2017-06-16 22:00] VITALS: BP 108/58
[2017-06-16] MEDS: MORPHINE SULF INJ 2 MG/ML SYRINGE 1ML IV PRN (23:13)
[2017-06-17] MEDS: HYDROcodone-ACET 10/325MG TAB PO PRN ×2 (01:02→05:47)
[2017-06-17] MEDS: MORPHINE SULF INJ 2 MG/ML SYRINGE 1ML IV PRN ×3 (03:41→12:15)
[2017-06-17 05:00] VITALS: BP 93/56
[2017-06-17] MEDS: CLINDAMYCIN HCL 150 MG CAP PO SCH ×3 (05:47→21:26)
[2017-06-17 07:19] VITALS: BP 104/61
[2017-06-17] MEDS: PRO-STAT 64 30ML PO SCH ×2 (08:38→18:00)
[2017-06-17] MEDS: MULTIPLE VITAMIN TAB PO SCH (09:43)
[2017-06-17] MEDS: LEVOFLOXACIN 500 MG TAB PO SCH (09:43)
[2017-06-17] MEDS: DOCUSATE SOD 100 MG CAP PO SCH ×2 (09:43→21:27)
[2017-06-17] MEDS: ASCORBIC ACID 500 MG TAB PO SCH ×2 (09:44→21:27)
[2017-06-17] MEDS: METOPROLOL SUCCINATE XL 50 MG TAB PO SCH (09:44)
[2017-06-17] MEDS: ENALAPRIL MALEATE 2.5 MG TAB PO SCH (09:45)
[2017-06-17] MEDS: NICOTINE 21MG/24 HR TOPICAL PATCH TD SCH (09:46)
[2017-06-17 12:07] VITALS: BP 105/57
[2017-06-17] MEDS ORDERED: SENNA 8.6 MG TAB PO ONE (13:15)
[2017-06-17] MEDS: OXYCODONE W/ ACETAMINOPHEN 5/325MG TABLET PO PRN (16:49)
[2017-06-17 17:00] VITALS: BP 130/67
[2017-06-17] MEDS: LACTULOSE 20Gm/30ML SOLN PO SCH ×2 (18:00→23:53)
[2017-06-17 20:51] VITALS: BP 130/67
[2017-06-17] MEDS: oxyCODONE ER 10 MG TAB PO SCH (21:26)
[2017-06-17] MEDS: ATORVASTATIN 20 MG TAB PO SCH (21:27)
[2017-06-17] MEDS ORDERED: SENNA 8.6 MG TAB PO SCH (22:00)
[2017-06-17 22:13] VITALS: BP 101/56
[2017-06-18] MEDS: OXYCODONE W/ ACETAMINOPHEN 5/325MG TABLET PO PRN ×3 (00:42→13:06)
[2017-06-18] MEDS: LACTULOSE 20Gm/30ML SOLN PO SCH ×2 (05:43→12:06)
[2017-06-18] MEDS: oxyCODONE ER 10 MG TAB PO SCH (05:44)
[2017-06-18] MEDS: CLINDAMYCIN HCL 150 MG CAP PO SCH ×2 (05:44→13:39)
[2017-06-18 08:00] VITALS: BP 125/65
[2017-06-18] MEDS: PRO-STAT 64 30ML PO SCH (08:07)
[2017-06-18] MEDS ORDERED: TEMAZEPAM 15 MG CAP PO PRN (09:00)
[2017-06-18] MEDS ORDERED: MAGNESIUM CITRATE SOLUTION 300 ML BTL PO ONE (09:15)
[2017-06-18] MEDS ORDERED: oxyCODONE ER 20 MG TAB PO ONE (09:15)
[2017-06-18] MEDS: DOCUSATE SOD 100 MG CAP PO SCH (09:37)
[2017-06-18] MEDS: METOPROLOL SUCCINATE XL 50 MG TAB PO SCH (09:37)
[2017-06-18] MEDS: MULTIPLE VITAMIN TAB PO SCH (09:37)
[2017-06-18] MEDS: LEVOFLOXACIN 500 MG TAB PO SCH (09:37)
[2017-06-18] MEDS: ASCORBIC ACID 500 MG TAB PO SCH (09:38)
[2017-06-18] MEDS: ENALAPRIL MALEATE 2.5 MG TAB PO SCH (09:38)
[2017-06-18] MEDS ORDERED: NICOTINE 21MG/24 HR TOPICAL PATCH TD SCH (10:00)
[2017-06-18 12:21] VITALS: BP 125/65
[2017-06-18] MEDS ORDERED: oxyCODONE ER 10 MG TAB PO SCH (14:00)
== END 2017-06-18 17:15 | disposition home health service (06) | DRG 720 ==
LOC: EDUNIT# 13:24 → EDBD 13:24 → ER 13:24 → TELE 13:25 → TELE-CENTR 21:38 → CENTRAL 06-06 14:48
PROVIDERS: ADMIT Internal Medicine; ATTEND Internal Medicine
PROC: B2111ZZ Fluoroscopy of Multiple Coronary Arteries using Low Osmolar Contrast (ICD-10-PCS; principal; 2017-06-06)
PROC: 4A023N7 Measurement of Cardiac Sampling and Pressure, Left Heart, Percutaneous Approach (ICD-10-PCS; 2017-06-06)
PROC: B2151ZZ Fluoroscopy of Left Heart using Low Osmolar Contrast (ICD-10-PCS; 2017-06-06)
PROC: 0QB20ZX Excision of Right Pelvic Bone, Open Approach, Diagnostic (ICD-10-PCS; 2017-06-13)
DX: A41.9 Sepsis, unspecified organism (principal); J96.00 Acute respiratory failure, unspecified whether with hypoxia or hypercapnia; E43 Unspecified severe protein-calorie malnutrition; L89.314 Pressure ulcer of right buttock, stage 4; D68.59 Other primary thrombophilia; G82.20 Paraplegia, unspecified; A28.0 Pasteurellosis; F11.20 Opioid dependence, uncomplicated; L89.319 Pressure ulcer of right buttock, unspecified stage; I71.2 Thoracic aortic aneurysm, without rupture; E46 Unspecified protein-calorie malnutrition; N39.0 Urinary tract infection, site not specified; I71.4 Abdominal aortic aneurysm, without rupture; E78.5 Hyperlipidemia, unspecified; E87.6 Hypokalemia; F17.210 Nicotine dependence, cigarettes, uncomplicated; G89.4 Chronic pain syndrome; D63.8 Anemia in other chronic diseases classified elsewhere; I10 Essential (primary) hypertension; K59.00 Constipation, unspecified; L27.2 Dermatitis due to ingested food; A49.01 Methicillin susceptible Staphylococcus aureus infection, unspecified site; M19.90 Unspecified osteoarthritis, unspecified site; K21.9 Gastro-esophageal reflux disease without esophagitis; Z53.9 Procedure and treatment not carried out, unspecified reason; Z82.3 Family history of stroke; Z82.49 Family history of ischemic heart disease and other diseases of the circulatory system; Z86.79 Personal history of other diseases of the circulatory system; Z88.1 Allergy status to other antibiotic agents; Z68.33 Body mass index [BMI] 33.0-33.9, adult
CPT/HCPCS: 36415; 51702; 71045; 71275; 80048; 80053; 80061; 80202; 81001; 82040; 82550; 82565; 83605; 83735; 83880; 84439; 84443; 84480; 84484; 85025; 85610; 85730; 86850; 86900; 86901; 87040; 87070; 87075; 87076; 87077; 87086; 87186; 87205; 88341; 93005; 93306; 93458; 94640; 96361; 96374; 96375; 96376; 99152; 99291; J0330; J0690; J2250; J2405; J2704; J3490; J7060

== ENCOUNTER 2017-09-28 04:18 | Emergency (ER) | payer MEDICAID ==
[~2017-09-28] VITALS: Ht 167.6 cm; Wt 79.4 kg
[~2017-09-28 04:18] MED LIST changes: -AMLO10TA2 PO; +ASCO500T11 PO; +ATOR20TA50 PO; +CHOL20007 OR; +DOCU100C8 PO; +ENA2.5T PO; -ENAL-3; -HYDR-2601 PO; -LACT10SO32; +METO50TA7 PO; +MULTTAB99 PO; +NIC21P TD
[2017-09-28 05:48] LABS: Basophils # (auto) 0 uL; Eosinophils # (auto) 0.1 uL; Mean Corpuscular Hemoglobin 25.4 pg (28.0-32.0); Mean Corpuscular Volume 80.1 fL (80.0-100.0); Monocytes # (auto) 0.5 uL; Monocytes % (auto) 5.7 % (0.0-12.0)
[2017-09-28 05:51] LABS: Basophils % (auto) 0.4 % (0.0-2.0); Hematocrit 33.6 % (36.0-46.0); Hemoglobin 10.7 g/dL (12.2-16.2); Lymphocytes % (auto) 21.8 % (10.0-50.0); Mean Corpuscular Hgb Conc. 31.8 g/dL (32.0-36.0); Neutrophils # (auto) 6.5 uL; Neutrophils % (auto) 71.1 % (37.0-80.0); Nucleated Red Blood Cells % 0.1 %; Platelet Count (auto) 367 10^3/uL (140-450); Red Blood Cells 4.19 10^6/uL (4.0-5.20); Red Cell Distribution Width 17.2 % (11.8-14.3); White Blood Cell 9.1 10^3/uL (4.4-10.8)
[2017-09-28 05:53] VITALS: BP 138/81
[2017-09-28 06:25] LABS: Alanine Aminotransferase 8 U/L (13-56); Albumin 2.9 g/dL (3.4-5.0); Anion Gap 11 (5-15); BUN/Creatinine Ratio 26.1; Blood Urea Nitrogen 12 mg/dL (7-18); Calcium 9.4 mg/dL (8.5-10.1); Carbon Dioxide 28 mmol/L (21-32); Chloride 100 mmol/L (98-107); GFR African American 180 mL/min; GFR Non-African American 149 mL/min; Glucose 96 mg/dL (74-106); Potassium 3.3 mmol/L (3.5-5.1); Sodium 139 mmol/L (136-145)
[2017-09-28 06:29] LABS: Alkaline Phosphatase 88 U/L (45-117); Aspartate Aminotransferase 7 U/L (15-37); Bilirubin, Total 0.4 mg/dL (0.2-1.0); Total Protein 9.2 g/dL (6.4-8.2)
[2017-09-28] MEDS ORDERED: KETOROLAC TROMETH 30 MG/ML 1ML VIAL IV ONE (06:45)
[2017-09-28 07:27] LABS: Urine Amorphous Crystal FEW /hpf (None Seen); Urine Bacteria MOD /hpf (None Seen); Urine Blood TRACE /uL (Negative); Urine Mucus FEW (None Seen); Urine Specific Gravity 1.029 (1.001-1.035); Urine WBC 29 /hpf (0 - 5)
[2017-09-28] MEDS ORDERED: SODIUM CHLORIDE 0.9% 1,000 ML IV ONE (07:43)
[2017-09-28] MEDS ORDERED: cefTRIAXone 1GM/10ml IVPUSH 10 ML IV ONE (07:45)
== END 2017-09-28 09:23 | disposition home or self-care (01) ==
LOC: ER 04:18 → EDBD 04:18 → ER 09:22
DX: N39.0 Urinary tract infection, site not specified (principal); S71.102D Unspecified open wound, left thigh, subsequent encounter; Z88.8 Allergy status to other drugs, medicaments and biological substances; Z79.899 Other long term (current) drug therapy
CPT/HCPCS: 36415; 80053; 81001; 83605; 84484; 85025; 87040; 93005; 96374; 96375; 99285; J1885; J7030

== ENCOUNTER 2018-03-09 17:29 | Inpatient (IN) | payer MEDICAID ==
[~2018-03-09] VITALS: Ht 167.6 cm; Wt 60.8 kg
[~2018-03-09 17:29] MED LIST changes: -ATOR20TA50 PO; +BACL10TA PO; -ENA2.5T GT; -METO50TA7 PO; -NOR10T; +OXY20CRT PO; +PERCOT PO; -POTASSIUM CL; -TRIA50TA2; +TRIA50TA2 PO
[2018-03-09 18:49] LABS: Basophils # (auto) 0 uL; Basophils % (auto) 0.3 % (0.0-2.0); Eosinophils # (auto) 0.1 uL; Eosinophils % (auto) 0.5 % (0.0-7.0)
[2018-03-09 18:51] LABS: Hematocrit 33.7 % (36.0-46.0); Hemoglobin 10.9 g/dL (12.2-16.2); Lymphocytes # (auto) 1.9 uL; Lymphocytes % (auto) 15.9 % (10.0-50.0); Mean Corpuscular Hemoglobin 25.4 pg (28.0-32.0); Mean Corpuscular Hgb Conc. 32.4 g/dL (32.0-36.0); Mean Corpuscular Volume 78.6 fL (80.0-100.0); Monocytes # (auto) 0.7 uL; Monocytes % (auto) 6.3 % (0.0-12.0); Platelet Count (auto) 332 10^3/uL (140-450); Red Blood Cells 4.29 10^6/uL (4.0-5.20); Red Cell Distribution Width 17.3 % (11.8-14.3); White Blood Cell 11.7 10^3/uL (4.4-10.8)
[2018-03-09 18:52] LABS: Albumin 2.8 g/dL (3.4-5.0); Calcium 8.9 mg/dL (8.5-10.1)
[2018-03-09 18:57] LABS: BUN/Creatinine Ratio 21.1; Bilirubin, Total 0.3 mg/dL (0.2-1.0); Total Protein 8.5 g/dL (6.4-8.2)
[2018-03-09 19:00] LABS: Potassium 2.8 mmol/L (3.5-5.1)
[2018-03-09] MEDS ORDERED: SODIUM CHLORIDE 0.9% 1,000 ML IVB ONE (19:25)
[2018-03-09] MEDS ORDERED: POTASSIUM CHL 20 Meq TABLET PO ONE ×2 (19:30)
[2018-03-09] MEDS ORDERED: HYDROcodone-ACET 10/325MG TAB PO ONE (20:15)
[2018-03-09] MEDS ORDERED: MORPHINE SULFATE 4 MG/ML SYR/VIAL IV ONE (20:30)
[2018-03-09] MEDS ORDERED: ONDANSETRON HCL 4 MG/2 ML VIAL IV ONE (20:30)
[2018-03-09] MEDS ORDERED: ONDANSETRON HCL 4 MG/2 ML VIAL IV PRN (23:15)
[2018-03-09] MEDS ORDERED: TEMAZEPAM 15 MG CAP PO PRN (23:15)
[2018-03-10 01:49] VITALS: BP 159/86
[2018-03-10] MEDS: MORPHINE SULFATE 4 MG/ML SYR/VIAL IV PRN ×4 (04:52→20:19)
[2018-03-10 05:00] VITALS: BP 129/77
[2018-03-10] MEDS: CLINDAMYCIN 600MG IV 50 ML IV SCH ×3 (05:46→22:00)
[2018-03-10 09:00] VITALS: BP_SYST 123; BP_SYST 175; BP_DIAS 102; BP_DIAS 70
[2018-03-10] MEDS: ENOXAPARIN SOD 40 MG/0.4 ML SYRINGE SC SCH ×2 (10:00→12:43)
[2018-03-10] MEDS: FAMOTIDINE 20 MG TAB PO SCH ×3 (10:00→20:19)
[2018-03-10] MEDS: ENALAPRIL MALEATE 2.5 MG TAB PO SCH ×2 (10:00→12:43)
[2018-03-10] MEDS: HCTZ 25 MG TAB PO SCH ×2 (10:00→12:42)
[2018-03-10] MEDS: METOPROLOL SUCCINATE XL 50 MG TAB PO SCH ×2 (10:00→12:42)
[2018-03-10 13:56] LABS: Basophils # (auto) 0 uL; Eosinophils # (auto) 0.1 uL; Lymphocytes % (auto) 25.5 % (10.0-50.0); Mean Corpuscular Hemoglobin 25.6 pg (28.0-32.0); Monocytes # (auto) 0.7 uL; Nucleated Red Blood Cells % 0.1 %
[2018-03-10 14:03] LABS: Basophils % (auto) 0.5 % (0.0-2.0); Eosinophils % (auto) 1.2 % (0.0-7.0); Hemoglobin 10.9 g/dL (12.2-16.2); Neutrophils # (auto) 4.9 uL; Neutrophils % (auto) 63.8 % (37.0-80.0); Platelet Count (auto) 289 10^3/uL (140-450); Red Blood Cells 4.25 10^6/uL (4.0-5.20); Red Cell Distribution Width 17.6 % (11.8-14.3); White Blood Cell 7.8 10^3/uL (4.4-10.8)
[2018-03-10 14:06] LABS: Albumin 2.7 g/dL (3.4-5.0); Calcium 8.8 mg/dL (8.5-10.1); Potassium 3.3 mmol/L (3.5-5.1)
[2018-03-10 14:11] LABS: BUN/Creatinine Ratio 17.3; Bilirubin, Total 0.3 mg/dL (0.2-1.0); Total Protein 8.2 g/dL (6.4-8.2)
[2018-03-10 16:48] VITALS: BP 130/81
[2018-03-10] MEDS: ZOLPIDEM TARTRATE 5 MG TAB PO PRN (20:19)
[2018-03-10 22:00] VITALS: BP 122/72
[2018-03-10] MEDS: ACETAMINOPHEN 325 MG TAB PO PRN (23:14)
[2018-03-10] MEDS: HYDROcodone-ACET 5/325MG TAB PO PRN (23:14)
[2018-03-11] MEDS: MORPHINE SULFATE 4 MG/ML SYR/VIAL IV PRN ×6 (00:15→21:02)
[2018-03-11] MEDS: HYDROcodone-ACET 5/325MG TAB PO PRN ×4 (00:16→12:11)
[2018-03-11] MEDS: ACETAMINOPHEN 325 MG TAB PO PRN (03:55)
[2018-03-11 05:00] VITALS: BP 159/93
[2018-03-11] MEDS: CLINDAMYCIN 600MG IV 50 ML IV SCH ×3 (06:00→21:28)
[2018-03-11 08:00] VITALS: BP 144/93
[2018-03-11 09:00] VITALS: BP 144/93
[2018-03-11] MEDS: ENOXAPARIN SOD 40 MG/0.4 ML SYRINGE SC SCH (09:35)
[2018-03-11] MEDS: METOPROLOL SUCCINATE XL 50 MG TAB PO SCH (09:36)
[2018-03-11] MEDS: FAMOTIDINE 20 MG TAB PO SCH ×2 (09:36→21:28)
[2018-03-11] MEDS: HCTZ 25 MG TAB PO SCH (09:37)
[2018-03-11] MEDS: ENALAPRIL MALEATE 2.5 MG TAB PO SCH (09:41)
[2018-03-11 12:59] VITALS: BP 135/78
[2018-03-11 17:04] VITALS: BP 122/76
[2018-03-11] MEDS: oxyCODONE ER 10 MG TAB PO SCH ×2 (20:02→21:01)
[2018-03-11 22:00] VITALS: BP 146/78
[2018-03-11 22:26] LABS: BUN/Creatinine Ratio 27.7; Calcium 8.1 mg/dL (8.5-10.1); Potassium 3.4 mmol/L (3.5-5.1)
[2018-03-12] MEDS: MORPHINE SULFATE 4 MG/ML SYR/VIAL IV PRN ×4 (01:50→20:34)
[2018-03-12 05:00] VITALS: BP 123/76
[2018-03-12] MEDS: CLINDAMYCIN 600MG IV 50 ML IV SCH ×3 (05:02→22:12)
[2018-03-12 08:56] VITALS: BP 120/62
[2018-03-12] MEDS: oxyCODONE ER 10 MG TAB PO SCH ×2 (09:32→22:09)
[2018-03-12] MEDS: HCTZ 25 MG TAB PO SCH (09:32)
[2018-03-12] MEDS: ENALAPRIL MALEATE 2.5 MG TAB PO SCH (09:33)
[2018-03-12] MEDS: FAMOTIDINE 20 MG TAB PO SCH ×2 (09:33→22:09)
[2018-03-12] MEDS: ENOXAPARIN SOD 40 MG/0.4 ML SYRINGE SC SCH (09:34)
[2018-03-12] MEDS: METOPROLOL SUCCINATE XL 50 MG TAB PO SCH (09:34)
[2018-03-12 13:00] VITALS: BP 134/97
[2018-03-12] MEDS ORDERED: POTASSIUM CHL 10 Meq TABLET PO ONE (17:15)
[2018-03-12] MEDS: HYDROcodone-ACET 5/325MG TAB PO PRN (17:15)
[2018-03-12] MEDS: FERROUS SULFATE 325 MG TAB PO SCH (17:57)
[2018-03-12] MEDS: PIPERACILLIN-TAZOB 3.375GM 100 ML IV SCH ×2 (17:57→23:26)
[2018-03-12] MEDS: Ensure Enlive Chocolate 8oz Bottle PO SCH (18:05)
[2018-03-12 22:00] VITALS: BP 107/61
[2018-03-13] MEDS: MORPHINE SULFATE 4 MG/ML SYR/VIAL IV PRN ×6 (00:36→23:15)
[2018-03-13] MEDS: PIPERACILLIN-TAZOB 3.375GM 100 ML IV SCH ×4 (04:36→23:15)
[2018-03-13 05:00] VITALS: BP 111/60
[2018-03-13] MEDS: CLINDAMYCIN 600MG IV 50 ML IV SCH ×3 (06:57→21:59)
[2018-03-13] MEDS: HYDROcodone-ACET 5/325MG TAB PO PRN (06:57)
[2018-03-13] MEDS: FERROUS SULFATE 325 MG TAB PO SCH ×2 (08:37→17:42)
[2018-03-13] MEDS: Ensure Enlive Chocolate 8oz Bottle PO SCH ×2 (08:43→17:42)
[2018-03-13] MEDS: METOPROLOL SUCCINATE XL 50 MG TAB PO SCH (10:00)
[2018-03-13] MEDS: oxyCODONE ER 10 MG TAB PO SCH ×2 (10:12→21:59)
[2018-03-13] MEDS: POTASSIUM CHL 10 Meq TABLET PO SCH (10:13)
[2018-03-13] MEDS: FAMOTIDINE 20 MG TAB PO SCH ×2 (10:13→21:59)
[2018-03-13] MEDS: HCTZ 25 MG TAB PO SCH (10:13)
[2018-03-13] MEDS: ENALAPRIL MALEATE 2.5 MG TAB PO SCH (10:14)
[2018-03-13] MEDS: ENOXAPARIN SOD 40 MG/0.4 ML SYRINGE SC SCH (10:15)
[2018-03-13 12:58] VITALS: BP 108/69
[2018-03-13 17:11] VITALS: BP 135/82
[2018-03-13 22:00] VITALS: BP 108/64
[2018-03-14] MEDS: MORPHINE SULFATE 4 MG/ML SYR/VIAL IV PRN ×5 (03:36→22:30)
[2018-03-14] MEDS: PIPERACILLIN-TAZOB 3.375GM 100 ML IV SCH ×3 (04:25→18:30)
[2018-03-14 05:15] VITALS: BP 101/57
[2018-03-14] MEDS: HYDROcodone-ACET 5/325MG TAB PO PRN (06:29)
[2018-03-14 08:00] VITALS: BP 93/43
[2018-03-14] MEDS: CLINDAMYCIN 600MG IV 50 ML IV SCH (08:20)
[2018-03-14] MEDS: Ensure Enlive Chocolate 8oz Bottle PO SCH ×2 (08:21→17:36)
[2018-03-14] MEDS: FERROUS SULFATE 325 MG TAB PO SCH ×2 (08:21→17:36)
[2018-03-14 09:00] VITALS: BP 93/43
[2018-03-14] MEDS ORDERED: VANCOMYCIN PER PHARMACY 0 MG IV SCH (09:45)
[2018-03-14] MEDS: HCTZ 25 MG TAB PO SCH (10:00)
[2018-03-14] MEDS: ENALAPRIL MALEATE 2.5 MG TAB PO SCH (10:00)
[2018-03-14] MEDS: oxyCODONE ER 10 MG TAB PO SCH ×2 (10:04→20:53)
[2018-03-14] MEDS: METOPROLOL SUCCINATE XL 50 MG TAB PO SCH (10:05)
[2018-03-14] MEDS: FAMOTIDINE 20 MG TAB PO SCH ×2 (10:05→20:27)
[2018-03-14] MEDS: ENOXAPARIN SOD 40 MG/0.4 ML SYRINGE SC SCH (10:06)
[2018-03-14] MEDS: POTASSIUM CHL 10 Meq TABLET PO SCH (10:23)
[2018-03-14 10:36] LABS: INR 0.97 (0.9-1.15); Prothrombin Time 10.4 sec (9.27-12.13)
[2018-03-14] MEDS: VANCOMYCIN 1GM/250ML 250 ML IV SCH ×2 (11:24→22:48)
[2018-03-14 13:00] VITALS: BP 139/84
[2018-03-14] MEDS ORDERED: diphenhdrAMINE HCL 50 MG/1 ML VL IV PRN (13:45)
[2018-03-14] MEDS ORDERED: hydrOXYzine HCL 25 MG/ML VL IM PRN (14:45)
[2018-03-14 17:00] VITALS: BP 93/52
[2018-03-14] MEDS: ACETAMINOPHEN 325 MG TAB PO PRN (20:27)
[2018-03-14] MEDS: ZOLPIDEM TARTRATE 5 MG TAB PO PRN (20:27)
[2018-03-14] MEDS: ASCORBIC ACID 500 MG TAB PO SCH (20:28)
[2018-03-14 22:36] VITALS: BP 106/58
[2018-03-15] VITALS (7 sets, daily range): BP systolic 100–121; BP diastolic 53–76
[2018-03-15] MEDS: PIPERACILLIN-TAZOB 3.375GM 100 ML IV SCH ×4 (01:00→18:29)
[2018-03-15] MEDS: HYDROcodone-ACET 5/325MG TAB PO PRN ×4 (02:02→22:07)
[2018-03-15] MEDS: MORPHINE SULFATE 4 MG/ML SYR/VIAL IV PRN ×4 (04:31→22:32)
[2018-03-15] MEDS ORDERED: SENNA 8.6 MG TAB PO ONE (09:45)
[2018-03-15] MEDS: HCTZ 25 MG TAB PO SCH (09:49)
[2018-03-15] MEDS: MULTIPLE VITAMIN TAB PO SCH (09:50)
[2018-03-15] MEDS: FAMOTIDINE 20 MG TAB PO SCH ×2 (09:50→22:13)
[2018-03-15] MEDS: ASCORBIC ACID 500 MG TAB PO SCH ×2 (09:50→22:13)
[2018-03-15] MEDS: METOPROLOL SUCCINATE XL 50 MG TAB PO SCH (09:50)
[2018-03-15] MEDS: POTASSIUM CHL 10 Meq TABLET PO SCH (09:50)
[2018-03-15] MEDS: ENALAPRIL MALEATE 2.5 MG TAB PO SCH (09:51)
[2018-03-15] MEDS: Ensure Enlive Chocolate 8oz Bottle PO SCH ×2 (09:52→18:12)
[2018-03-15] MEDS: ENOXAPARIN SOD 40 MG/0.4 ML SYRINGE SC SCH (09:52)
[2018-03-15] MEDS: oxyCODONE ER 10 MG TAB PO SCH ×2 (09:52→22:13)
[2018-03-15] MEDS: FERROUS SULFATE 325 MG TAB PO SCH ×2 (10:06→18:29)
[2018-03-15] MEDS: VANCOMYCIN 1GM/250ML 250 ML IV SCH ×2 (11:21→23:03)
[2018-03-16] MEDS: PIPERACILLIN-TAZOB 3.375GM 100 ML IV SCH ×4 (00:36→17:43)
[2018-03-16] MEDS: MORPHINE SULFATE 4 MG/ML SYR/VIAL IV PRN ×6 (02:47→22:39)
[2018-03-16 05:11] VITALS: BP 95/49
[2018-03-16] MEDS: Ensure Enlive Chocolate 8oz Bottle PO SCH ×2 (08:00→18:00)
[2018-03-16 09:00] VITALS: BP 111/67
[2018-03-16] MEDS: METOPROLOL SUCCINATE XL 50 MG TAB PO SCH (10:00)
[2018-03-16] MEDS: FERROUS SULFATE 325 MG TAB PO SCH ×2 (10:15→17:43)
[2018-03-16] MEDS: oxyCODONE ER 10 MG TAB PO SCH ×2 (10:15→22:05)
[2018-03-16] MEDS: ENOXAPARIN SOD 40 MG/0.4 ML SYRINGE SC SCH (10:15)
[2018-03-16] MEDS: ASCORBIC ACID 500 MG TAB PO SCH ×2 (10:16→22:05)
[2018-03-16] MEDS: POTASSIUM CHL 10 Meq TABLET PO SCH (10:16)
[2018-03-16] MEDS: FAMOTIDINE 20 MG TAB PO SCH ×2 (10:17→22:05)
[2018-03-16] MEDS: MULTIPLE VITAMIN TAB PO SCH (10:17)
[2018-03-16] MEDS: ENALAPRIL MALEATE 2.5 MG TAB PO SCH (10:18)
[2018-03-16] MEDS: HCTZ 25 MG TAB PO SCH (10:18)
[2018-03-16] MEDS: VANCOMYCIN 1GM/250ML 250 ML IV SCH ×2 (11:00→22:44)
[2018-03-16 12:00] VITALS: BP 126/72
[2018-03-16 17:00] VITALS: BP 117/81
[2018-03-16 20:00] VITALS: BP 99/56
[2018-03-16 22:02] VITALS: BP 99/56
[2018-03-17] MEDS: PIPERACILLIN-TAZOB 3.375GM 100 ML IV SCH ×4 (01:03→19:35)
[2018-03-17] MEDS: MORPHINE SULFATE 4 MG/ML SYR/VIAL IV PRN ×5 (02:40→23:02)
[2018-03-17 05:17] VITALS: BP 111/65
[2018-03-17 05:36] LABS: Calcium 9.1 mg/dL (8.5-10.1); Potassium 3.8 mmol/L (3.5-5.1)
[2018-03-17 05:38] LABS: BUN/Creatinine Ratio 36.7
[2018-03-17 09:00] VITALS: BP 115/65
[2018-03-17] MEDS ORDERED: LACTULOSE 20Gm/30ML SOLN ONE (09:19)
[2018-03-17] MEDS: MULTIPLE VITAMIN TAB PO SCH (09:24)
[2018-03-17] MEDS: ASCORBIC ACID 500 MG TAB PO SCH ×2 (09:24→22:00)
[2018-03-17] MEDS: HCTZ 25 MG TAB PO SCH (09:25)
[2018-03-17] MEDS: oxyCODONE ER 10 MG TAB PO SCH ×2 (09:26→22:30)
[2018-03-17] MEDS: POTASSIUM CHL 10 Meq TABLET PO SCH (09:26)
[2018-03-17] MEDS: FERROUS SULFATE 325 MG TAB PO SCH ×2 (09:26→19:34)
[2018-03-17] MEDS: FAMOTIDINE 20 MG TAB PO SCH ×2 (09:28→22:30)
[2018-03-17] MEDS: ENALAPRIL MALEATE 2.5 MG TAB PO SCH (09:29)
[2018-03-17] MEDS ORDERED: LACTULOSE 20Gm/30ML SOLN PO PRN (09:30)
[2018-03-17] MEDS: Ensure Enlive Chocolate 8oz Bottle PO SCH ×2 (09:30→18:00)
[2018-03-17] MEDS: METOPROLOL SUCCINATE XL 50 MG TAB PO SCH (09:30)
[2018-03-17] MEDS: ENOXAPARIN SOD 40 MG/0.4 ML SYRINGE SC SCH (09:31)
[2018-03-17] MEDS: VANCOMYCIN 1GM/250ML 250 ML IV SCH ×2 (11:21→22:48)
[2018-03-17 13:00] VITALS: BP 129/72
[2018-03-17 17:00] VITALS: BP 114/64
[2018-03-17] MEDS: HYDROcodone-ACET 5/325MG TAB PO PRN (19:34)
[2018-03-17 21:50] VITALS: BP 117/73
[2018-03-18] MEDS: PIPERACILLIN-TAZOB 3.375GM 100 ML IV SCH ×4 (01:31→19:00)
[2018-03-18] MEDS: MORPHINE SULFATE 4 MG/ML SYR/VIAL IV PRN ×5 (03:02→22:10)
[2018-03-18 05:00] VITALS: BP 112/49
[2018-03-18 07:40] VITALS: BP 110/66
[2018-03-18] MEDS: Ensure Enlive Chocolate 8oz Bottle PO SCH ×2 (08:00→18:41)
[2018-03-18] MEDS: MULTIPLE VITAMIN TAB PO SCH (09:10)
[2018-03-18] MEDS: ENOXAPARIN SOD 40 MG/0.4 ML SYRINGE SC SCH (09:10)
[2018-03-18] MEDS: POTASSIUM CHL 10 Meq TABLET PO SCH (09:10)
[2018-03-18] MEDS: FAMOTIDINE 20 MG TAB PO SCH ×2 (09:11→22:11)
[2018-03-18] MEDS: FERROUS SULFATE 325 MG TAB PO SCH ×2 (09:11→18:40)
[2018-03-18] MEDS: oxyCODONE ER 10 MG TAB PO SCH ×2 (09:11→22:11)
[2018-03-18] MEDS: ASCORBIC ACID 500 MG TAB PO SCH ×2 (09:11→22:11)
[2018-03-18] MEDS: ENALAPRIL MALEATE 2.5 MG TAB PO SCH (09:13)
[2018-03-18] MEDS: HCTZ 25 MG TAB PO SCH (09:14)
[2018-03-18] MEDS: METOPROLOL SUCCINATE XL 50 MG TAB PO SCH (09:14)
[2018-03-18] MEDS: VANCOMYCIN 1GM/250ML 250 ML IV SCH ×2 (11:00→23:42)
[2018-03-18] MEDS ORDERED: SULFAMETHOX W/TRIMETH(800/160MG) DS TAB PO ONE (11:30)
[2018-03-18 11:37] VITALS: BP 134/60
[2018-03-18] MEDS ORDERED: SULF400T11 PO (11:40)
[2018-03-18 16:25] VITALS: BP 113/74
[2018-03-18 20:00] VITALS: BP 134/72
[2018-03-18] MEDS: HYDROcodone-ACET 5/325MG TAB PO PRN (20:15)
[2018-03-18 22:00] VITALS: BP 134/72
[2018-03-18] MEDS ORDERED: SULFAMETHOX W/TRIMETH(800/160MG) DS TAB PO SCH (22:00)
[2018-03-19] MEDS: PIPERACILLIN-TAZOB 3.375GM 100 ML IV SCH ×2 (00:57→06:35)
[2018-03-19 05:00] VITALS: BP 93/58
[2018-03-19] MEDS: Ensure Enlive Chocolate 8oz Bottle PO SCH (08:00)
[2018-03-19] MEDS: FERROUS SULFATE 325 MG TAB PO SCH (08:46)
[2018-03-19] MEDS: oxyCODONE ER 10 MG TAB PO SCH (08:47)
[2018-03-19 08:52] VITALS: BP 127/69
[2018-03-19 09:00] VITALS: BP 127/69
== END 2018-03-19 12:17 | disposition home or self-care (01) | DRG 380 ==
LOC: ER 17:29 → EDBD 17:29 → EDUNIT# 17:29 → OVERFLOW 17:30 → CENTRAL 23:37
PROVIDERS: ADMIT Nurse Practitioner; ATTEND Internal Medicine
PROC: 05HY33Z Insertion of Infusion Device into Upper Vein, Percutaneous Approach (ICD-10-PCS; principal; 2018-03-14)
DX: L89.314 Pressure ulcer of right buttock, stage 4 (principal); E43 Unspecified severe protein-calorie malnutrition; G82.20 Paraplegia, unspecified; F11.20 Opioid dependence, uncomplicated; E87.5 Hyperkalemia; D50.9 Iron deficiency anemia, unspecified; F17.210 Nicotine dependence, cigarettes, uncomplicated; B96.20 Unspecified Escherichia coli [E. coli] as the cause of diseases classified elsewhere; I10 Essential (primary) hypertension; E87.6 Hypokalemia; G89.4 Chronic pain syndrome; L08.89 Other specified local infections of the skin and subcutaneous tissue; Z16.23 Resistance to quinolones and fluoroquinolones; F41.9 Anxiety disorder, unspecified; B95.62 Methicillin resistant Staphylococcus aureus infection as the cause of diseases classified elsewhere; M19.90 Unspecified osteoarthritis, unspecified site; I71.4 Abdominal aortic aneurysm, without rupture; Z22.322 Carrier or suspected carrier of Methicillin resistant Staphylococcus aureus; Z82.0 Family history of epilepsy and other diseases of the nervous system; Z82.3 Family history of stroke; Z82.49 Family history of ischemic heart disease and other diseases of the circulatory system; Z86.73 Personal history of transient ischemic attack (TIA), and cerebral infarction without residual deficits; Z90.49 Acquired absence of other specified parts of digestive tract; Z87.442 Personal history of urinary calculi; Z88.8 Allergy status to other drugs, medicaments and biological substances; Z68.21 Body mass index [BMI] 21.0-21.9, adult
CPT/HCPCS: 36415; 36569; 71045; 72192; 80048; 80053; 80202; 83605; 85025; 85610; 87040; 87077; 87081; 87186; 87205; 94761; 96361; 96374; 96375; A6257; G0378; J2405; J2543; J3490

== ENCOUNTER 2018-08-08 21:53 | Emergency (ER) | payer MEDICAID ==
[~2018-08-08] VITALS: Ht 170.2 cm; Wt 59.0 kg
[~2018-08-08 21:53] MED LIST changes: -DOCU100C8 PO; +SULF400T11 PO
[2018-08-08 23:26] LABS: Basophils # (auto) 0.1 uL; Eosinophils # (auto) 0.2 uL; Hemoglobin 11.6 g/dL (12.2-16.2); Lymphocytes # (auto) 2.3 uL; Monocytes # (auto) 0.7 uL; Nucleated Red Blood Cells % 0.1 %
[2018-08-08 23:28] LABS: Basophils % (auto) 0.8 % (0.0-2.0); Eosinophils % (auto) 2.4 % (0.0-7.0); Lymphocytes % (auto) 29.9 % (10.0-50.0); Mean Corpuscular Hemoglobin 27.1 pg (28.0-32.0); Mean Corpuscular Volume 82.2 fL (80.0-100.0); Monocytes % (auto) 9.3 % (0.0-12.0); Neutrophils # (auto) 4.3 uL; Neutrophils % (auto) 57.6 % (37.0-80.0); Platelet Count (auto) 209 10^3/uL (140-450); Red Blood Cells 4.26 10^6/uL (4.0-5.20); Red Cell Distribution Width 16.9 % (11.8-14.3); White Blood Cell 7.5 10^3/uL (4.4-10.8)
[2018-08-08 23:40] LABS: INR 0.94 (0.9-1.15); Partial Thromboplastin Time 28.9 sec (23.78-33.04); Prothrombin Time 10.1 sec (9.27-12.13)
[2018-08-08 23:43] LABS: Alanine Aminotransferase 18 U/L (13-56); Albumin 2.8 g/dL (3.4-5.0); Anion Gap 7 (5-15); Aspartate Aminotransferase 11 U/L (15-37); BUN/Creatinine Ratio 24.4; Blood Urea Nitrogen 10 mg/dL (7-18); Calcium 8.7 mg/dL (8.5-10.1); Carbon Dioxide 25 mmol/L (21-32); Chloride 109 mmol/L (98-107); GFR African American 205 mL/min; GFR Non-African American 169 mL/min; Glucose 97 mg/dL (74-106); Potassium 3.2 mmol/L (3.5-5.1); Sodium 141 mmol/L (136-145)
[2018-08-08 23:47] LABS: Alkaline Phosphatase 87 U/L (45-117); Bilirubin, Total 0.3 mg/dL (0.2-1.0); Total Protein 7.7 g/dL (6.4-8.2)
[2018-08-09] MEDS ORDERED: ONDANSETRON HCL 4 MG/2 ML VIAL IV ONE ×2 (00:30→13:30)
[2018-08-09] MEDS ORDERED: MORPHINE SULFATE 4 MG/ML SYR/VIAL IV ONE ×3 (00:30→19:30)
[2018-08-09] MEDS ORDERED: VANCOMYCIN 1GM/250ML 250 ML IV ONE (01:45)
[2018-08-09] MEDS ORDERED: LEVOFLOXACIN 750MG 150 ML IV ONE (01:45)
[2018-08-09 02:31] LABS: Urine Bacteria MOD /hpf (None Seen); Urine Blood TRACE /uL (Negative); Urine Mucus FEW (None Seen); Urine Specific Gravity 1.017 (1.001-1.035); Urine WBC 13 /hpf (0 - 5)
[2018-08-09] MEDS ORDERED: HYDROmorphone HCL 2 MG/ML VL IV ONE ×2 (08:00→13:30)
[2018-08-09] MEDS ORDERED: PROMETHAZINE HCL 25 MG/ML 1ML IV ONE (08:00)
[2018-08-10 01:29] VITALS: BP 114/59
[2018-08-10] MEDS ORDERED: HYDROcodone-ACET 10/325MG TAB PO ONE (01:45)
== END 2018-08-10 02:46 | disposition home or self-care (01) ==
LOC: EDBD 21:53 → ER 21:56
DX: M54.5 Low back pain (principal); G89.29 Other chronic pain; M54.16 Radiculopathy, lumbar region; M00.9 Pyogenic arthritis, unspecified; L89.514 Pressure ulcer of right ankle, stage 4; E87.6 Hypokalemia; N39.0 Urinary tract infection, site not specified; M79.605 Pain in left leg; M79.604 Pain in right leg; M19.90 Unspecified osteoarthritis, unspecified site; I11.0 Hypertensive heart disease with heart failure; I50.9 Heart failure, unspecified; F17.210 Nicotine dependence, cigarettes, uncomplicated; Z88.8 Allergy status to other drugs, medicaments and biological substances; Z86.73 Personal history of transient ischemic attack (TIA), and cerebral infarction without residual deficits; Z79.899 Other long term (current) drug therapy
CPT/HCPCS: 36415; 51701; 71045; 72128; 72131; 73700; 80053; 81001; 83880; 84484; 85025; 85610; 85730; 87040; 87077; 87186; 87205; 93005; 96365; 96366; 96368; 96375; 96376

== ENCOUNTER 2019-02-02 02:40 | Emergency (ER) | payer MEDICAID ==
[~2019-02-02] VITALS: Ht 170.2 cm; Wt 72.6 kg
[~2019-02-02 02:40] MED LIST changes: -ENA2.5T PO; +ENAL2.5T2 PO
[2019-02-03 05:28] VITALS: BP 157/75
== END 2019-02-02 07:07 | disposition left against medical advice (07) ==
LOC: ER 02:40 → EDBD 02:40 → ER 07:07
DX: M54.9 Dorsalgia, unspecified (principal); Z53.21 Procedure and treatment not carried out due to patient leaving prior to being seen by health care provider

== ENCOUNTER 2021-05-29 10:44 | Emergency (ER) | payer MEDICAID ==
[~2021-05-29] VITALS: Ht 162.6 cm; Wt 63.5 kg
[~2021-05-29 10:44] MED LIST changes: +ENAL2.5T11 PO; -ENAL2.5T2 PO; -METO25TA62; +METO25TA93
[2021-05-29 11:24] VITALS: BP 168/91
[2021-05-29] MEDS ORDERED: OXYCODONE W/ ACETAMINOPHEN 5/325MG TABLET PO ONE (18:30)
== END 2021-05-30 01:08 | disposition left against medical advice (07) ==
LOC: EDBD 10:44 → ER 10:44
DX: S31.829D Unspecified open wound of left buttock, subsequent encounter (principal); R07.89 Other chest pain; Z53.29 Procedure and treatment not carried out because of patient's decision for other reasons; X58.XXXD Exposure to other specified factors, subsequent encounter
CPT/HCPCS: 93005

== ENCOUNTER 2021-07-12 20:50 | Emergency (ER) | payer MEDICAID ==
[~2021-07-12] VITALS: Ht 160 cm; Wt 81.6 kg
[2021-07-12] MEDS ORDERED: AMOX-277 PO (22:38)
[2021-07-12] MEDS ORDERED: IBUPROFEN 600 MG TAB PO ONE (22:45)
[2021-07-12] MEDS ORDERED: HYDROcodone-ACET 5/325MG TAB PO ONE (22:45)
[2021-07-12] MEDS ORDERED: cefTRIAXone W LIDOCAINE 1 GM IM IM ONE (22:45)
[2021-07-12] MEDS ORDERED: KETOROLAC TROMETH 30 MG/ML 1ML VIAL IM ONE (23:00)
[2021-07-13 05:48] VITALS: BP 118/64
== END 2021-07-13 15:22 | disposition home or self-care (01) ==
LOC: EDBD 20:50 → ER 20:56
DX: L89.309 Pressure ulcer of unspecified buttock, unspecified stage (principal); I11.0 Hypertensive heart disease with heart failure; I50.9 Heart failure, unspecified; F17.210 Nicotine dependence, cigarettes, uncomplicated; Z86.73 Personal history of transient ischemic attack (TIA), and cerebral infarction without residual deficits; Z79.899 Other long term (current) drug therapy; Z79.2 Long term (current) use of antibiotics; Z88.8 Allergy status to other drugs, medicaments and biological substances
CPT/HCPCS: 93005; 96372; 99285; J1885; J0696

== ENCOUNTER 2021-11-14 23:39 | Inpatient (IN) | payer MEDICAID ==
[~2021-11-14] VITALS: Ht 160 cm; Wt 60.0 kg
[~2021-11-14 23:39] MED LIST changes: +AMOX-277 PO
[2021-11-15] MEDS ORDERED: SODIUM CHLORIDE 0.9% 1,000 ML IV ONE ×2 (00:45→08:00)
[2021-11-15 01:40] LABS: Basophils # (auto) 0 10 ^3/uL (0-0.2); Basophils % (auto) 0.2 % (0.0-2.0); Eosinophils # (auto) 0 10 ^3/uL (0-0.8); Eosinophils % (auto) 0.3 % (0.0-7.0); Hematocrit 33.3 % (36.0-46.0); Hemoglobin 10.7 g/dL (12.2-16.2); Lymphocytes # (auto) 3.6 10 ^3/uL (0.4-5.4); Lymphocytes % (auto) 23.2 % (10.0-50.0); Mean Corpuscular Hemoglobin 26.3 pg (28.0-32.0); Mean Corpuscular Volume 82.1 fL (80.0-100.0); Monocytes # (auto) 1.3 10 ^3/uL (0-1.3); Monocytes % (auto) 8.3 % (0.0-12.0); Neutrophils # (auto) 10.6 10 ^3/uL (1.6-8.6); Nucleated Red Blood Cells % 0.1 %; Red Blood Cells 4.06 10^6/uL (4.0-5.20); Red Cell Distribution Width 15.5 % (11.8-14.3); White Blood Cell 15.7 10^3/uL (4.4-10.8)
[2021-11-15] MEDS ORDERED: MORPHINE SULFATE 4 MG/ML SYR/VIAL IV ONE ×2 (01:45→06:00)
[2021-11-15 02:23] LABS: Albumin 1.7 g/dL (3.4-5.0); BUN/Creatinine Ratio 64.3; Calcium 9.4 mg/dL (8.5-10.1); Potassium 3.4 mmol/L (3.5-5.1)
[2021-11-15 02:26] LABS: Bilirubin, Total 0.4 mg/dL (0.2-1.0); Total Protein 7.9 g/dL (6.4-8.2)
[2021-11-15] MEDS ORDERED: cefTRIAXone SOD 1,000 MG VL IV ONE (03:45)
[2021-11-15] MEDS ORDERED: MORPHINE SULFATE INJ 2 MG/ml SYRG IV PRN (08:00)
[2021-11-15] MEDS ORDERED: hydrALAZINE HCL 20 MG/ML VL IV PRN (08:00)
[2021-11-15] MEDS ORDERED: DOCUSATE SOD 100 MG CAP PO PRN (08:00)
[2021-11-15] MEDS ORDERED: ONDANSETRON HCL 4 MG/2 ML VIAL IV PRN (08:00)
[2021-11-15] MEDS ORDERED: NITROGLYCERIN 0.4 MG SL TAB SL PRN (08:00)
[2021-11-15] MEDS ORDERED: ACETAMINOPHEN 325 MG TAB PO PRN (08:00)
[2021-11-15] MEDS: LORazepam 2MG/ML-1ML VIAL IV ONE ×2 (08:04→08:14)
[2021-11-15] MEDS ORDERED: IOHEXOL 350 MG/ML 100ML IJ ONE (08:14)
[2021-11-15] MEDS: ENOXAPARIN SOD 40 MG/0.4 ML SYRINGE SC SCH (09:54)
[2021-11-15] MEDS ORDERED: AZITHROMYCIN 500MG/ 250ML 250 ML IV SCH (10:00)
[2021-11-15] MEDS: METOPROLOL SUCCINATE XL 50 MG TAB PO SCH (10:11)
[2021-11-15] MEDS: MORPHINE SULFATE INJ 2 MG/ml SYRG IV PRN ×4 (10:12→22:26)
[2021-11-15 12:16] LABS: Urine Bacteria NONE SEEN /hpf (None Seen); Urine Blood 3+ /uL (Negative); Urine Budding Yeast LOADED /hpf (None Seen); Urine Mucus FEW (None Seen); Urine WBC 1170 /hpf (0 - 5); Urine WBC Clumps PRESENT /hpf (None Seen)
[2021-11-15] MEDS ORDERED: LABETALOL INJECTION 250 MG in SODIUM CHL 0.9% 200 ML IV ONE (12:30)
[2021-11-15] MEDS: HYDROcodone-ACET 5/325MG TAB PO PRN ×2 (16:08→20:58)
[2021-11-15] MEDS: LORazepam 0.5 MG TAB PO PRN (16:09)
[2021-11-15 21:52] VITALS: BP 106/62
[2021-11-15] MEDS ORDERED: VANCOMYCIN PER PHARMACY 0 MG IV SCH (23:30)
[2021-11-16] MEDS ORDERED: VANCOMYCIN 1GM/250ML 250 ML IV ONE (00:45)
[2021-11-16] MEDS ORDERED: cefTRIAXone 1GM/50ML D5W 50 ML IV SCH (04:00)
[2021-11-16] MEDS: MORPHINE SULFATE INJ 2 MG/ml SYRG IV PRN ×4 (04:45→18:29)
[2021-11-16 04:54] VITALS: BP 119/65
[2021-11-16 06:53] LABS: Basophils # (auto) 0 10 ^3/uL (0-0.2); Basophils % (auto) 0.2 % (0.0-2.0); Eosinophils # (auto) 0.1 10 ^3/uL (0-0.8); Hematocrit 26.3 % (36.0-46.0); Hemoglobin 8.4 g/dL (12.2-16.2); Lymphocytes # (auto) 2.9 10 ^3/uL (0.4-5.4); Lymphocytes % (auto) 25.3 % (10.0-50.0); Mean Corpuscular Hgb Conc. 31.7 g/dL (32.0-36.0); Mean Corpuscular Volume 81.9 fL (80.0-100.0); Monocytes # (auto) 1.2 10 ^3/uL (0-1.3); Monocytes % (auto) 10.5 % (0.0-12.0); Neutrophils # (auto) 7.3 10 ^3/uL (1.6-8.6); Nucleated Red Blood Cells % 0.1 %; Red Blood Cells 3.21 10^6/uL (4.0-5.20); Red Cell Distribution Width 15.9 % (11.8-14.3); White Blood Cell 11.6 10^3/uL (4.4-10.8)
[2021-11-16 07:05] LABS: Albumin 1.3 g/dL (3.4-5.0); Calcium 8.5 mg/dL (8.5-10.1); Potassium 3.8 mmol/L (3.5-5.1)
[2021-11-16 07:09] LABS: BUN/Creatinine Ratio 59.4; Bilirubin, Total 0.2 mg/dL (0.2-1.0); Total Protein 6.9 g/dL (6.4-8.2)
[2021-11-16] MEDS ORDERED: PIPERACILLIN-TAZOB 3.375GM 100 ML IV ONE (07:45)
[2021-11-16] MEDS: HYDROcodone-ACET 5/325MG TAB PO PRN ×2 (07:51→17:45)
[2021-11-16] MEDS: METOPROLOL SUCCINATE XL 50 MG TAB PO SCH (10:00)
[2021-11-16] MEDS: ENOXAPARIN SOD 40 MG/0.4 ML SYRINGE SC SCH (10:00)
[2021-11-16] MEDS ORDERED: HYDROmorphone HCL 2 MG/ML VL/or syr IV ONE ×2 (11:00→20:30)
[2021-11-16] MEDS: VANCOMYCIN 750mg/250ml 250 ML IV SCH (15:00)
[2021-11-16] MEDS: PIPERACILLIN-TAZOB 3.375GM 100 ML IV SCH ×3 (15:59→22:40)
[2021-11-16 21:59] VITALS: BP 141/60
[2021-11-17] MEDS: PIPERACILLIN-TAZOB 3.375GM 100 ML IV SCH ×4 (00:53→23:49)
[2021-11-17] MEDS: MORPHINE SULFATE INJ 2 MG/ml SYRG IV PRN ×4 (01:05→13:30)
[2021-11-17 05:00] VITALS: BP 133/72
[2021-11-17] MEDS: VANCOMYCIN 750mg/250ml 250 ML IV SCH ×4 (07:00→21:02)
[2021-11-17] MEDS: ENOXAPARIN SOD 40 MG/0.4 ML SYRINGE SC SCH (07:58)
[2021-11-17] MEDS: METOPROLOL SUCCINATE XL 50 MG TAB PO SCH (08:22)
[2021-11-17 08:46] VITALS: BP 154/77
[2021-11-17 12:31] VITALS: BP 157/74
[2021-11-17] MEDS ORDERED: APIX5TAB PO (16:26)
[2021-11-17] MEDS ORDERED: BACL20TA PO (16:26)
[2021-11-17] MEDS ORDERED: SENN1TAB14 PO (16:26)
[2021-11-17] MEDS ORDERED: HYDR25TA4 PO (16:26)
[2021-11-17] MEDS ORDERED: OXYC15TA48 PO (16:26)
[2021-11-17] MEDS: HYDROmorphone HCL 2 MG/ML VL/or syr IV PRN ×2 (17:30→21:43)
[2021-11-17 23:28] VITALS: BP 148/79
[2021-11-18] MEDS: HYDROmorphone HCL 2 MG/ML VL/or syr IV PRN ×5 (01:58→20:03)
[2021-11-18 05:00] VITALS: BP 139/75
[2021-11-18] MEDS: PIPERACILLIN-TAZOB 3.375GM 100 ML IV SCH ×3 (06:06→21:55)
[2021-11-18 08:00] VITALS: BP 127/72
[2021-11-18] MEDS: VANCOMYCIN 750mg/250ml 250 ML IV SCH ×2 (08:37→20:07)
[2021-11-18] MEDS: METOPROLOL SUCCINATE XL 50 MG TAB PO SCH (08:38)
[2021-11-18] MEDS: ENOXAPARIN SOD 40 MG/0.4 ML SYRINGE SC SCH ×2 (08:38→08:57)
[2021-11-18 11:52] VITALS: BP 136/68
[2021-11-18 17:00] VITALS: BP 134/71
[2021-11-18] MEDS ORDERED: ACETAMINOPHEN/CODEINE#3 (300/30mg) TAB PO PRN ×2 (17:30→17:45)
[2021-11-18] MEDS: Pro-Stat SF 30ml Vanilla PO SCH (18:32)
[2021-11-18] MEDS: Juven Fruit Punch Powder PACKET 28.8gm PO SCH (18:33)
[2021-11-18] MEDS: MORPHINE SULFATE INJ 2 MG/ml SYRG IV PRN (21:54)
[2021-11-18] MEDS: LORazepam 0.5 MG TAB PO PRN (21:54)
[2021-11-18 22:00] VITALS: BP 117/61
[2021-11-19] MEDS: HYDROmorphone HCL 2 MG/ML VL/or syr IV PRN ×2 (03:05→20:09)
[2021-11-19 05:05] LABS: Basophils # (auto) 0 10 ^3/uL (0-0.2); Basophils % (auto) 0.2 % (0.0-2.0); Eosinophils # (auto) 0.2 10 ^3/uL (0-0.8); Eosinophils % (auto) 1.8 % (0.0-7.0); Hemoglobin 8.4 g/dL (12.2-16.2); Lymphocytes # (auto) 2.2 10 ^3/uL (0.4-5.4); Mean Corpuscular Hemoglobin 25.3 pg (28.0-32.0); Mean Corpuscular Hgb Conc. 30.9 g/dL (32.0-36.0); Mean Corpuscular Volume 81.9 fL (80.0-100.0); Monocytes # (auto) 0.9 10 ^3/uL (0-1.3); Monocytes % (auto) 7.9 % (0.0-12.0); Neutrophils # (auto) 7.8 10 ^3/uL (1.6-8.6); Neutrophils % (auto) 70.1 % (37.0-80.0); Red Cell Distribution Width 15.9 % (11.8-14.3); White Blood Cell 11.1 10^3/uL (4.4-10.8)
[2021-11-19 05:14] VITALS: BP 140/74
[2021-11-19 05:23] LABS: Calcium 8.6 mg/dL (8.5-10.1); Potassium 3.4 mmol/L (3.5-5.1)
[2021-11-19 05:26] LABS: BUN/Creatinine Ratio 31.5
[2021-11-19] MEDS: PIPERACILLIN-TAZOB 3.375GM 100 ML IV SCH ×3 (05:50→23:34)
[2021-11-19] MEDS: MORPHINE SULFATE INJ 2 MG/ml SYRG IV PRN ×4 (06:30→23:37)
[2021-11-19] MEDS: VANCOMYCIN 750mg/250ml 250 ML IV SCH (08:24)
[2021-11-19] MEDS: ENOXAPARIN SOD 40 MG/0.4 ML SYRINGE SC SCH (08:45)
[2021-11-19 09:15] VITALS: BP 141/72
[2021-11-19] MEDS: Pro-Stat SF 30ml Vanilla PO SCH (09:48)
[2021-11-19] MEDS: Juven Fruit Punch Powder PACKET 28.8gm PO SCH (09:48)
[2021-11-19] MEDS: METOPROLOL SUCCINATE XL 50 MG TAB PO SCH (10:00)
[2021-11-19 12:26] VITALS: BP 153/84
[2021-11-19] MEDS: LINEZOLID 600MG/300ML 300 ML IV SCH ×2 (17:18→23:34)
[2021-11-19 17:29] VITALS: BP 132/69
[2021-11-19 22:00] VITALS: BP 161/56
[2021-11-19] MEDS: LORazepam 0.5 MG TAB PO PRN (23:33)
[2021-11-20] MEDS: MORPHINE SULFATE INJ 2 MG/ml SYRG IV PRN ×3 (03:55→13:25)
[2021-11-20 05:00] VITALS: BP 121/69
[2021-11-20] MEDS: PIPERACILLIN-TAZOB 3.375GM 100 ML IV SCH ×2 (05:50→14:09)
[2021-11-20] MEDS: METOPROLOL SUCCINATE XL 50 MG TAB PO SCH (08:32)
[2021-11-20] MEDS: ENOXAPARIN SOD 40 MG/0.4 ML SYRINGE SC SCH (08:42)
[2021-11-20 09:00] VITALS: BP 121/61
[2021-11-20] MEDS: Pro-Stat SF 30ml Vanilla PO SCH (10:16)
[2021-11-20] MEDS: Juven Fruit Punch Powder PACKET 28.8gm PO SCH (10:16)
[2021-11-20] MEDS: LINEZOLID 600MG/300ML 300 ML IV SCH ×2 (10:17→23:07)
[2021-11-20 13:00] VITALS: BP 136/70
[2021-11-20 16:36] VITALS: BP 108/56
[2021-11-20] MEDS: HYDROmorphone HCL 2 MG/ML VL/or syr IV PRN (20:19)
[2021-11-20 22:00] VITALS: BP 104/61
[2021-11-21] MEDS: MORPHINE SULFATE INJ 2 MG/ml SYRG IV PRN ×3 (00:01→23:20)
[2021-11-21] MEDS: PIPERACILLIN-TAZOB 3.375GM 100 ML IV SCH ×4 (01:11→23:05)
[2021-11-21] MEDS: HYDROmorphone HCL 2 MG/ML VL/or syr IV PRN (03:44)
[2021-11-21 05:00] VITALS: BP 127/72
[2021-11-21 09:00] VITALS: BP 132/69
[2021-11-21] MEDS: Juven Fruit Punch Powder PACKET 28.8gm PO SCH (09:32)
[2021-11-21] MEDS: Pro-Stat SF 30ml Vanilla PO SCH (09:33)
[2021-11-21] MEDS: METOPROLOL SUCCINATE XL 50 MG TAB PO SCH (09:39)
[2021-11-21] MEDS: ENOXAPARIN SOD 40 MG/0.4 ML SYRINGE SC SCH (09:40)
[2021-11-21] MEDS: LINEZOLID 600MG/300ML 300 ML IV SCH (10:00)
[2021-11-21 17:00] VITALS: BP 126/95
[2021-11-21 22:00] VITALS: BP 109/65
[2021-11-22] MEDS: LINEZOLID 600MG/300ML 300 ML IV SCH ×3 (02:20→21:47)
[2021-11-22] MEDS: MORPHINE SULFATE INJ 2 MG/ml SYRG IV PRN ×5 (03:36→21:47)
[2021-11-22 05:00] VITALS: BP 110/53
[2021-11-22] MEDS: PIPERACILLIN-TAZOB 3.375GM 100 ML IV SCH (05:34)
[2021-11-22 09:00] VITALS: BP 127/42
[2021-11-22] MEDS: METOPROLOL SUCCINATE XL 50 MG TAB PO SCH ×2 (09:25→09:35)
[2021-11-22] MEDS: Pro-Stat SF 30ml Vanilla PO SCH (09:34)
[2021-11-22] MEDS: ENOXAPARIN SOD 40 MG/0.4 ML SYRINGE SC SCH (09:34)
[2021-11-22] MEDS: Juven Fruit Punch Powder PACKET 28.8gm PO SCH (09:34)
[2021-11-22] MEDS ORDERED: TOBRAMYCIN INJ 80 MG in D5W 5% 100 ML IV ONE (10:45)
[2021-11-22] MEDS ORDERED: LINE1TAB5 PO (10:46)
[2021-11-22 13:00] VITALS: BP 125/54
[2021-11-22] MEDS: TOBRAMYCIN IV SCH (13:40)
[2021-11-22] MEDS: D5W 5% IV SCH (13:40)
[2021-11-22 17:00] VITALS: BP 122/64
[2021-11-22 22:00] VITALS: BP 119/68
[2021-11-23] MEDS: MORPHINE SULFATE INJ 2 MG/ml SYRG IV PRN ×2 (02:54→07:58)
[2021-11-23 05:10] VITALS: BP 105/50
[2021-11-23 09:00] VITALS: BP 103/48
[2021-11-23] MEDS: LINEZOLID 600MG/300ML 300 ML IV SCH ×2 (09:40→22:36)
[2021-11-23] MEDS: Juven Fruit Punch Powder PACKET 28.8gm PO SCH (09:40)
[2021-11-23] MEDS: Pro-Stat SF 30ml Vanilla PO SCH (09:41)
[2021-11-23] MEDS: METOPROLOL SUCCINATE XL 50 MG TAB PO SCH (09:41)
[2021-11-23] MEDS: ENOXAPARIN SOD 40 MG/0.4 ML SYRINGE SC SCH (09:41)
[2021-11-23] MEDS: TOBRAMYCIN IV SCH (11:15)
[2021-11-23] MEDS: D5W 5% IV SCH (11:15)
[2021-11-23 12:00] VITALS: BP 131/66
[2021-11-23] MEDS: HYDROmorphone HCL 2 MG/ML VL/or syr IV PRN ×3 (13:42→22:38)
[2021-11-23 17:00] VITALS: BP 116/59
[2021-11-23 22:00] VITALS: BP 105/47
[2021-11-24] MEDS: HYDROmorphone HCL 2 MG/ML VL/or syr IV PRN ×3 (02:34→11:54)
[2021-11-24 05:00] VITALS: BP 119/64
[2021-11-24] MEDS: Juven Fruit Punch Powder PACKET 28.8gm PO SCH (09:24)
[2021-11-24] MEDS: LINEZOLID 600MG/300ML 300 ML IV SCH ×2 (09:24→22:08)
[2021-11-24] MEDS: Pro-Stat SF 30ml Vanilla PO SCH (09:24)
[2021-11-24] MEDS: METOPROLOL SUCCINATE XL 50 MG TAB PO SCH (09:25)
[2021-11-24] MEDS: ENOXAPARIN SOD 40 MG/0.4 ML SYRINGE SC SCH (09:25)
[2021-11-24] MEDS: MORPHINE SULFATE INJ 2 MG/ml SYRG IV PRN ×3 (09:25→20:35)
[2021-11-24] MEDS: D5W 5% IV SCH ×2 (12:00→16:31)
[2021-11-24] MEDS: TOBRAMYCIN IV SCH ×2 (12:00→16:31)
[2021-11-24 16:35] VITALS: BP 124/69
[2021-11-24 22:00] VITALS: BP 116/71
[2021-11-25] MEDS: MORPHINE SULFATE INJ 2 MG/ml SYRG IV PRN ×2 (01:16→05:29)
[2021-11-25 04:57] VITALS: BP 120/54
[2021-11-25] MEDS: LINEZOLID 600MG/300ML 300 ML IV SCH (08:38)
[2021-11-25] MEDS: METOPROLOL SUCCINATE XL 50 MG TAB PO SCH (08:39)
[2021-11-25] MEDS: HYDROmorphone HCL 2 MG/ML VL/or syr IV PRN (08:39)
[2021-11-25] MEDS: Pro-Stat SF 30ml Vanilla PO SCH (08:40)
[2021-11-25] MEDS: Juven Fruit Punch Powder PACKET 28.8gm PO SCH (08:40)
[2021-11-25] MEDS: ENOXAPARIN SOD 40 MG/0.4 ML SYRINGE SC SCH (08:41)
[2021-11-25 09:00] VITALS: BP 112/57
[2021-11-25 09:09] VITALS: BP 112/57
== END 2021-11-25 10:00 | disposition home health service (06) | DRG 720 ==
LOC: EDBD 23:39 → ER 23:39 → TELE 11-15 08:09 → TELE-CENTR 11-15 17:33 → CENTRAL 11-18 10:56
PROVIDERS: ADMIT Family Medicine; ATTEND Internal Medicine
PROC: 0JB70ZZ Excision of Back Subcutaneous Tissue and Fascia, Open Approach (ICD-10-PCS; principal; 2021-11-17 13:43)
PROC: 05H933Z Insertion of Infusion Device into Right Brachial Vein, Percutaneous Approach (ICD-10-PCS; 2021-11-23)
PROC: B54MZZA Ultrasonography of Right Upper Extremity Veins, Guidance (ICD-10-PCS; 2021-11-23)
DX: A41.81 Sepsis due to Enterococcus (principal); E43 Unspecified severe protein-calorie malnutrition; L89.154 Pressure ulcer of sacral region, stage 4; I11.0 Hypertensive heart disease with heart failure; I50.9 Heart failure, unspecified; L89.894 Pressure ulcer of other site, stage 4; L89.324 Pressure ulcer of left buttock, stage 4; G82.20 Paraplegia, unspecified; I51.3 Intracardiac thrombosis, not elsewhere classified; D64.9 Anemia, unspecified; E87.6 Hypokalemia; F17.210 Nicotine dependence, cigarettes, uncomplicated; I16.1 Hypertensive emergency; F32.A Depression, unspecified; F41.9 Anxiety disorder, unspecified; I71.9 Aortic aneurysm of unspecified site, without rupture; L89.510 Pressure ulcer of right ankle, unstageable; F11.20 Opioid dependence, uncomplicated; L89.619 Pressure ulcer of right heel, unspecified stage; B95.2 Enterococcus as the cause of diseases classified elsewhere; Z16.21 Resistance to vancomycin; Z20.822 Contact with and (suspected) exposure to COVID-19; L98.429 Non-pressure chronic ulcer of back with unspecified severity; Z74.01 Bed confinement status; Z93.3 Colostomy status; Z82.0 Family history of epilepsy and other diseases of the nervous system; Z82.3 Family history of stroke; Z82.49 Family history of ischemic heart disease and other diseases of the circulatory system; Z86.73 Personal history of transient ischemic attack (TIA), and cerebral infarction without residual deficits; Z88.1 Allergy status to other antibiotic agents; Z84.1 Family history of disorders of kidney and ureter; Z68.1 Body mass index [BMI] 19.9 or less, adult
CPT/HCPCS: 36415; 71045; 71275; 76705; 80048; 80053; 80200; 80202; 81001; 83605; 83880; 84484; 85025; 87040; 87070; 87075; 87077; 87086; 87088; 87186; 87205; 93005; 96361; 96374; 96375; G0378; J0696; J2543; J7060

== ENCOUNTER 2021-11-30 14:10 | Inpatient (IN) | payer MEDICAID ==
[~2021-11-30] VITALS: Ht 167.6 cm; Wt 53.8 kg
[~2021-11-30 14:10] MED LIST changes: -AMOX-277 PO; +APIX5TAB PO; -ASCO500T11 PO; -BACL10TA PO; +BACL20TA PO; -CHOL20007 OR; -ENAL2.5T11 PO; +HYDR25TA4 PO; +LINE1TAB5 PO; -METO25TA93; -MULTTAB99 PO; -NIC21P TD; -OXY20CRT PO; +OXYC15TA48 PO; -PERCOT PO; +SENN1TAB14 PO; -SULF400T11 PO; -TRIA50TA2 PO; -ZOLP10TA6
[2021-11-30] MEDS ORDERED: ONDANSETRON HCL 4 MG/2 ML VIAL IV ONE ×2 (15:00→20:30)
[2021-11-30] MEDS ORDERED: HYDROmorphone HCL 2 MG/ML VL/or syr IV ONE ×2 (15:00→20:30)
[2021-11-30] MEDS ORDERED: PIPERACILLIN-TAZOB 3.375GM 100 ML IV ONE (15:00)
[2021-11-30] MEDS ORDERED: SODIUM CHLORIDE 0.9% 1,000 ML IV ONE ×2 (15:00→15:15)
[2021-11-30] MEDS ORDERED: VANCOMYCIN 1GM/250ML 250 ML IV ONE (15:00)
[2021-11-30 16:01] LABS: Basophils # (auto) 0 10 ^3/uL (0-0.2); Eosinophils # (auto) 0.1 10 ^3/uL (0-0.8); Hemoglobin 7.8 g/dL (12.2-16.2); Lymphocytes # (auto) 2.5 10 ^3/uL (0.4-5.4)
[2021-11-30 16:03] LABS: Basophils % (auto) 0.2 % (0.0-2.0); Eosinophils % (auto) 0.7 % (0.0-7.0); Hematocrit 24.9 % (36.0-46.0); Lymphocytes % (auto) 21.9 % (10.0-50.0); Mean Corpuscular Hemoglobin 25.1 pg (28.0-32.0); Mean Corpuscular Hgb Conc. 31.4 g/dL (32.0-36.0); Mean Corpuscular Volume 79.9 fL (80.0-100.0); Monocytes # (auto) 1.7 10 ^3/uL (0-1.3); Monocytes % (auto) 14.3 % (0.0-12.0); Neutrophils # (auto) 7.3 10 ^3/uL (1.6-8.6); Neutrophils % (auto) 62.9 % (37.0-80.0); Red Blood Cells 3.12 10^6/uL (4.0-5.20); Red Cell Distribution Width 16.5 % (11.8-14.3); White Blood Cell 11.5 10^3/uL (4.4-10.8)
[2021-11-30 16:09] LABS: Albumin 1.7 g/dL (3.4-5.0); Calcium 9.1 mg/dL (8.5-10.1); Magnesium 1.7 mg/dL (1.6-2.6)
[2021-11-30 16:13] LABS: Bilirubin, Total 0.5 mg/dL (0.2-1.0)
[2021-11-30 16:15] LABS: Potassium 2.6 mmol/L (3.5-5.1)
[2021-11-30 16:17] LABS: INR 1.1 (0.9-1.15)
[2021-11-30 16:18] LABS: BUN/Creatinine Ratio 30.8
[2021-11-30] MEDS: POTASSIUM CHL 20MEQ/100ML 100 ML IV SCH ×2 (16:30→18:30)
[2021-11-30 16:49] LABS: Urine Bacteria MANY /hpf (None Seen); Urine Blood 2+ /uL (Negative); Urine Budding Yeast LOADED /hpf (None Seen); Urine Mucus FEW (None Seen); Urine Specific Gravity 1.014 (1.001-1.035); Urine WBC 182 /hpf (0 - 5)
[2021-11-30] MEDS ORDERED: POTASSIUM EFFERVESENT TAB 25 MEQ PO ONE (18:00)
[2021-11-30] MEDS ORDERED: POTASSIUM CHL 20 Meq TABLET PO ONE (18:30)
[2021-11-30] MEDS ORDERED: TEMAZEPAM 15 MG CAP PO PRN (21:15)
[2021-11-30] MEDS ORDERED: ACETAMINOPHEN 325 MG TAB PO PRN (21:15)
[2021-11-30] MEDS ORDERED: HYDROcodone-ACET 5/325MG TAB PO PRN (21:15)
[2021-11-30] MEDS ORDERED: ONDANSETRON HCL 4 MG/2 ML VIAL IV PRN (21:15)
[2021-11-30] MEDS ORDERED: PATIENTS OWN MEDICATION (linezolid 600 MG) IV SCH (22:00)
[2021-11-30] MEDS ORDERED: APIXABAN 5 MG TAB PO SCH (22:00)
[2021-12-01] VITALS (8 sets, daily range): BP systolic 94–109; BP diastolic 51–67
[2021-12-01] MEDS: LINEZOLID 600MG/300ML 300 ML IV SCH ×3 (01:16→22:06)
[2021-12-01] MEDS: MORPHINE SULFATE INJ 2 MG/ml SYRG IV PRN ×2 (06:19→15:22)
[2021-12-01 06:41] LABS: Albumin 1.6 g/dL (3.4-5.0); Potassium 3.7 mmol/L (3.5-5.1)
[2021-12-01 06:45] LABS: BUN/Creatinine Ratio 35.9; Bilirubin, Total 0.5 mg/dL (0.2-1.0); Total Protein 6.6 g/dL (6.4-8.2)
[2021-12-01 06:51] LABS: Basophils # (auto) 0 10 ^3/uL (0-0.2); Basophils % (auto) 0.2 % (0.0-2.0); Eosinophils # (auto) 0.2 10 ^3/uL (0-0.8); Eosinophils % (auto) 1.9 % (0.0-7.0); Neutrophils # (auto) 5.2 10 ^3/uL (1.6-8.6); Nucleated Red Blood Cells % 0.2 %
[2021-12-01 06:54] LABS: Hematocrit 21.3 % (36.0-46.0); Lymphocytes # (auto) 2.3 10 ^3/uL (0.4-5.4); Mean Corpuscular Hemoglobin 25.8 pg (28.0-32.0); Mean Corpuscular Hgb Conc. 32.4 g/dL (32.0-36.0); Mean Corpuscular Volume 79.4 fL (80.0-100.0); Monocytes # (auto) 1.2 10 ^3/uL (0-1.3); Monocytes % (auto) 13.2 % (0.0-12.0); Neutrophils % (auto) 58.7 % (37.0-80.0); Red Blood Cells 2.69 10^6/uL (4.0-5.20); Red Cell Distribution Width 16.4 % (11.8-14.3); White Blood Cell 8.8 10^3/uL (4.4-10.8)
[2021-12-01 06:57] LABS: Hemoglobin 6.9 g/dL (12.2-16.2)
[2021-12-01] MEDS ORDERED: TOBRAMYCIN PER PHARMACY 0 ML IV SCH (08:30)
[2021-12-01] MEDS: HCTZ 25 MG TAB PO SCH (10:00)
[2021-12-01] MEDS: amLODIPine BESYLATE 5 MG TAB PO SCH (10:00)
[2021-12-01] MEDS: FAMOTIDINE (10MG/ML) 2ML VL IV SCH ×2 (10:14→22:06)
[2021-12-01] MEDS ORDERED: TOBRAMYCIN IV SCH (12:00)
[2021-12-01] MEDS ORDERED: D5W 5% IV SCH (12:00)
[2021-12-01] MEDS ORDERED: LORazepam 2MG/ML-1ML VIAL IV PRN (20:00)
[2021-12-01] MEDS: HYDROmorphone HCL 2 MG/ML VL/or syr IV PRN (20:16)
[2021-12-02] VITALS (7 sets, daily range): BP systolic 91–114; BP diastolic 51–64
[2021-12-02] MEDS: HYDROmorphone HCL 2 MG/ML VL/or syr IV PRN ×4 (02:08→21:05)
[2021-12-02 07:03] LABS: Basophils # (auto) 0 10 ^3/uL (0-0.2); Eosinophils # (auto) 0.2 10 ^3/uL (0-0.8); Mean Corpuscular Hemoglobin 26.8 pg (28.0-32.0); Monocytes # (auto) 0.9 10 ^3/uL (0-1.3)
[2021-12-02 07:05] LABS: Basophils % (auto) 0.4 % (0.0-2.0); Eosinophils % (auto) 2.3 % (0.0-7.0); Hematocrit 27.1 % (36.0-46.0); Hemoglobin 8.8 g/dL (12.2-16.2); Lymphocytes # (auto) 1.8 10 ^3/uL (0.4-5.4); Lymphocytes % (auto) 26.2 % (10.0-50.0); Mean Corpuscular Hgb Conc. 32.5 g/dL (32.0-36.0); Mean Corpuscular Volume 82.5 fL (80.0-100.0); Monocytes % (auto) 13.1 % (0.0-12.0); Nucleated Red Blood Cells % 0.1 %; Red Blood Cells 3.29 10^6/uL (4.0-5.20); Red Cell Distribution Width 17.1 % (11.8-14.3); White Blood Cell 6.9 10^3/uL (4.4-10.8)
[2021-12-02 07:14] LABS: Albumin 1.5 g/dL (3.4-5.0); Calcium 9.1 mg/dL (8.5-10.1); Potassium 3.8 mmol/L (3.5-5.1)
[2021-12-02 07:18] LABS: BUN/Creatinine Ratio 37.8; Bilirubin, Total 0.6 mg/dL (0.2-1.0); Total Protein 6.7 g/dL (6.4-8.2)
[2021-12-02 07:19] LABS: Ferritin > 1650.0 ng/mL (10-322)
[2021-12-02] MEDS: LINEZOLID 600MG/300ML 300 ML IV SCH (08:30)
[2021-12-02] MEDS: HCTZ 25 MG TAB PO SCH (08:47)
[2021-12-02] MEDS: FAMOTIDINE (10MG/ML) 2ML VL IV SCH ×2 (08:47→23:13)
[2021-12-02] MEDS: amLODIPine BESYLATE 5 MG TAB PO SCH (08:48)
[2021-12-02] MEDS: DAKINS QUARTER STR 0.125% (NaHypochlorite) 473 ML TOPICAL SOL TOP SCH (10:43)
[2021-12-02] MEDS ORDERED: ERTAPENEM SOD INJ 1 GM in SODIUM CHL 0.9% 50 ML IV ONE (12:00)
[2021-12-02] MEDS: CARBAMIDE PEROXIDE 6.5% OTIC(EAR) SOLN 15ML LEFT EAR SCH (22:00)
[2021-12-03] MEDS: HYDROmorphone HCL 2 MG/ML VL/or syr IV PRN ×4 (03:09→22:04)
[2021-12-03 09:00] VITALS: BP 109/58
[2021-12-03] MEDS: HCTZ 25 MG TAB PO SCH (10:00)
[2021-12-03] MEDS: DAKINS QUARTER STR 0.125% (NaHypochlorite) 473 ML TOPICAL SOL TOP SCH (10:00)
[2021-12-03] MEDS: amLODIPine BESYLATE 5 MG TAB PO SCH (10:00)
[2021-12-03] MEDS: CARBAMIDE PEROXIDE 6.5% OTIC(EAR) SOLN 15ML LEFT EAR SCH ×2 (10:12→22:00)
[2021-12-03] MEDS: FAMOTIDINE (10MG/ML) 2ML VL IV SCH ×2 (10:13→22:03)
[2021-12-03] MEDS: ERTAPENEM SOD INJ 1 GM in SODIUM CHL 0.9% 50 ML IV SCH (10:58)
[2021-12-03 12:46] VITALS: BP 106/53
[2021-12-03] MEDS ORDERED: CYCLOBENZAPRINE HCL 10 MG TAB PO PRN (15:30)
[2021-12-03 17:00] VITALS: BP 116/60
[2021-12-03 22:00] VITALS: BP 118/67
[2021-12-04] MEDS: HYDROmorphone HCL 2 MG/ML VL/or syr IV PRN ×4 (04:17→23:06)
[2021-12-04 05:00] VITALS: BP 121/63
[2021-12-04 09:40] LABS: Basophils # (auto) 0 10 ^3/uL (0-0.2); Basophils % (auto) 0.2 % (0.0-2.0); Monocytes # (auto) 0.8 10 ^3/uL (0-1.3); Neutrophils # (auto) 4.1 10 ^3/uL (1.6-8.6); White Blood Cell 6.5 10^3/uL (4.4-10.8)
[2021-12-04 09:42] LABS: Eosinophils # (auto) 0.1 10 ^3/uL (0-0.8); Eosinophils % (auto) 2.2 % (0.0-7.0); Hemoglobin 8.4 g/dL (12.2-16.2); Lymphocytes # (auto) 1.5 10 ^3/uL (0.4-5.4); Lymphocytes % (auto) 22.4 % (10.0-50.0); Mean Corpuscular Hemoglobin 25.9 pg (28.0-32.0); Mean Corpuscular Hgb Conc. 31.2 g/dL (32.0-36.0); Mean Corpuscular Volume 83.1 fL (80.0-100.0); Monocytes % (auto) 11.8 % (0.0-12.0); Neutrophils % (auto) 63.4 % (37.0-80.0); Nucleated Red Blood Cells % 0.2 %; Red Blood Cells 3.25 10^6/uL (4.0-5.20); Red Cell Distribution Width 17.3 % (11.8-14.3)
[2021-12-04] MEDS: ERTAPENEM SOD INJ 1 GM in SODIUM CHL 0.9% 50 ML IV SCH (11:05)
[2021-12-04] MEDS: FAMOTIDINE (10MG/ML) 2ML VL IV SCH ×2 (11:05→22:26)
[2021-12-04] MEDS: amLODIPine BESYLATE 5 MG TAB PO SCH ×2 (11:06→11:16)
[2021-12-04] MEDS: DAKINS QUARTER STR 0.125% (NaHypochlorite) 473 ML TOPICAL SOL TOP SCH (11:07)
[2021-12-04] MEDS: CARBAMIDE PEROXIDE 6.5% OTIC(EAR) SOLN 15ML LEFT EAR SCH (11:07)
[2021-12-04] MEDS: HCTZ 25 MG TAB PO SCH (11:16)
[2021-12-05 05:00] VITALS: BP 111/61
[2021-12-05] MEDS: HYDROmorphone HCL 2 MG/ML VL/or syr IV PRN ×4 (05:01→19:58)
[2021-12-05 09:00] VITALS: BP 116/52
[2021-12-05] MEDS: DAKINS QUARTER STR 0.125% (NaHypochlorite) 473 ML TOPICAL SOL TOP SCH (11:18)
[2021-12-05] MEDS: CARBAMIDE PEROXIDE 6.5% OTIC(EAR) SOLN 15ML LEFT EAR SCH ×2 (11:18→21:25)
[2021-12-05] MEDS: FAMOTIDINE (10MG/ML) 2ML VL IV SCH ×2 (11:18→21:24)
[2021-12-05] MEDS: HCTZ 25 MG TAB PO SCH (11:18)
[2021-12-05] MEDS: amLODIPine BESYLATE 5 MG TAB PO SCH (11:18)
[2021-12-05 17:00] VITALS: BP 122/74
[2021-12-05 22:00] VITALS: BP 104/60
[2021-12-06] VITALS (8 sets, daily range): BP systolic 104–124; BP diastolic 53–65
[2021-12-06] MEDS: HYDROmorphone HCL 2 MG/ML VL/or syr IV PRN ×4 (00:07→13:26)
[2021-12-06] MEDS: HCTZ 25 MG TAB PO SCH ×3 (09:58→10:04)
[2021-12-06] MEDS: FAMOTIDINE (10MG/ML) 2ML VL IV SCH ×2 (09:58→10:03)
[2021-12-06] MEDS: amLODIPine BESYLATE 5 MG TAB PO SCH (09:58)
[2021-12-06] MEDS: DAKINS QUARTER STR 0.125% (NaHypochlorite) 473 ML TOPICAL SOL TOP SCH (10:00)
[2021-12-06] MEDS: CARBAMIDE PEROXIDE 6.5% OTIC(EAR) SOLN 15ML LEFT EAR SCH (10:00)
[2021-12-06] MEDS ORDERED: TOLTERODINE TARTRATE 1 MG TAB PO SCH (22:00)
== END 2021-12-06 21:10 | disposition home health service (06) | DRG 466 ==
LOC: EDBD 14:10 → ER 14:10 → OVERFLOW 21:03 → WEST WING 22:54
PROVIDERS: ADMIT Nurse Practitioner; ATTEND Internal Medicine Pulmonary Disease
PROC: 30233N1 Transfusion of Nonautologous Red Blood Cells into Peripheral Vein, Percutaneous Approach (ICD-10-PCS; principal; 2021-12-01)
DX: T83.518A Infection and inflammatory reaction due to other urinary catheter, initial encounter (principal); L89.154 Pressure ulcer of sacral region, stage 4; I11.0 Hypertensive heart disease with heart failure; G82.20 Paraplegia, unspecified; D62 Acute posthemorrhagic anemia; I50.9 Heart failure, unspecified; L89.610 Pressure ulcer of right heel, unstageable; L89.894 Pressure ulcer of other site, stage 4; L89.324 Pressure ulcer of left buttock, stage 4; L89.314 Pressure ulcer of right buttock, stage 4; E87.6 Hypokalemia; T83.031A Leakage of indwelling urethral catheter, initial encounter; Y73.8 Miscellaneous gastroenterology and urology devices associated with adverse incidents, not elsewhere classified; F32.A Depression, unspecified; F41.9 Anxiety disorder, unspecified; F17.210 Nicotine dependence, cigarettes, uncomplicated; G89.29 Other chronic pain; M19.90 Unspecified osteoarthritis, unspecified site; Z88.1 Allergy status to other antibiotic agents; F11.20 Opioid dependence, uncomplicated; Z20.822 Contact with and (suspected) exposure to COVID-19; J45.909 Unspecified asthma, uncomplicated; Z74.01 Bed confinement status; Z79.01 Long term (current) use of anticoagulants; Z82.0 Family history of epilepsy and other diseases of the nervous system; Z82.3 Family history of stroke; Z82.49 Family history of ischemic heart disease and other diseases of the circulatory system; Z86.73 Personal history of transient ischemic attack (TIA), and cerebral infarction without residual deficits; Z87.442 Personal history of urinary calculi; Z93.3 Colostomy status; Z79.899 Other long term (current) drug therapy; Y92.89 Other specified places as the place of occurrence of the external cause
CPT/HCPCS: 36415; 80053; 80200; 81001; 82270; 82607; 82728; 82746; 83540; 83550; 83735; 83880; 84484; 85025; 85045; 85610; 85730; 86850; 86900; 86901; 86920; 87040; 87077; 87086; 87088; 87186; 87205; 93005; 96361; 96365; 96367; 96375; 96376; 99291; G0378; J1335; J2405; J2543; J3490; J7060

== ENCOUNTER 2022-01-01 06:08 | Inpatient (IN) | payer MEDICAID ==
[~2022-01-01] VITALS: Ht 165.1 cm; Wt 55.0 kg
[~2022-01-01 06:08] MED LIST changes: -LINE1TAB5 PO
[2022-01-01] MEDS ORDERED: MORPHINE SULFATE 4 MG/ML SYR/VIAL IV ONE ×2 (11:15→16:00)
[2022-01-01] MEDS ORDERED: ONDANSETRON HCL 4 MG/2 ML VIAL IV ONE (11:15)
[2022-01-01] MEDS ORDERED: VANCOMYCIN 1GM/250ML 250 ML IV ONE (11:15)
[2022-01-01] MEDS ORDERED: PIPERACILLIN-TAZO 4.5GM 100 ML IV ONE (11:15)
[2022-01-01 12:07] LABS: Basophils # (auto) 0 10 ^3/uL (0-0.2); Basophils % (auto) 0.3 % (0.0-2.0); Eosinophils # (auto) 0.1 10 ^3/uL (0-0.8); Eosinophils % (auto) 0.8 % (0.0-7.0); Hematocrit 28.5 % (36.0-46.0); Hemoglobin 8.8 g/dL (12.2-16.2); Lymphocytes # (auto) 2.1 10 ^3/uL (0.4-5.4); Lymphocytes % (auto) 16.2 % (10.0-50.0); Mean Corpuscular Hemoglobin 25.3 pg (28.0-32.0); Mean Corpuscular Hgb Conc. 30.9 g/dL (32.0-36.0); Mean Corpuscular Volume 81.7 fL (80.0-100.0); Monocytes # (auto) 1.1 10 ^3/uL (0-1.3); Monocytes % (auto) 8.6 % (0.0-12.0); Neutrophils # (auto) 9.5 10 ^3/uL (1.6-8.6); Neutrophils % (auto) 74.1 % (37.0-80.0); Nucleated Red Blood Cells % 0.1 %; Red Blood Cells 3.49 10^6/uL (4.0-5.20); Red Cell Distribution Width 17.2 % (11.8-14.3); White Blood Cell 12.8 10^3/uL (4.4-10.8)
[2022-01-01 12:22] LABS: INR 1.03 (0.9-1.15)
[2022-01-01 12:27] LABS: Albumin 1.7 g/dL (3.4-5.0); Calcium 9.7 mg/dL (8.5-10.1); Potassium 3.4 mmol/L (3.5-5.1)
[2022-01-01 12:32] LABS: BUN/Creatinine Ratio 53.8; Bilirubin, Total 0.7 mg/dL (0.2-1.0); Total Protein 7.4 g/dL (6.4-8.2)
[2022-01-01] MEDS ORDERED: MORPHINE SULFATE 4 MG/ML SYR/VIAL ONE (15:19)
[2022-01-01] MEDS ORDERED: NITROGLYCERIN 0.4 MG SL TAB SL PRN (15:45)
[2022-01-01] MEDS ORDERED: MORPHINE SULFATE INJ 2 MG/ml SYRG IV PRN (15:45)
[2022-01-01] MEDS ORDERED: SODIUM CHLORIDE 0.9% 1,000 ML IV ONE (16:00)
[2022-01-01] MEDS ORDERED: SENNA 8.6 MG TAB PO PRN (16:00)
[2022-01-01] MEDS: SODIUM CHLORIDE 0.9% 1,000 ML IV SCH (16:08)
[2022-01-01] MEDS: MORPHINE SULFATE 4 MG/ML SYR/VIAL IV PRN (20:19)
[2022-01-01] MEDS: PIPERACILLIN-TAZOB 3.375GM 100 ML IV SCH (22:49)
[2022-01-01] MEDS: APIXABAN 5 MG TAB PO SCH (22:50)
[2022-01-02] MEDS: MORPHINE SULFATE INJ 2 MG/ml SYRG IV PRN ×2 (00:53→06:52)
[2022-01-02 04:02] LABS: Basophils # (auto) 0 10 ^3/uL (0-0.2); Basophils % (auto) 0.2 % (0.0-2.0); Eosinophils # (auto) 0.1 10 ^3/uL (0-0.8); Hematocrit 23.6 % (36.0-46.0); Hemoglobin 7.6 g/dL (12.2-16.2); Lymphocytes # (auto) 1.5 10 ^3/uL (0.4-5.4); Lymphocytes % (auto) 16.9 % (10.0-50.0); Mean Corpuscular Hemoglobin 26.1 pg (28.0-32.0); Mean Corpuscular Hgb Conc. 32.1 g/dL (32.0-36.0); Mean Corpuscular Volume 81.3 fL (80.0-100.0); Monocytes # (auto) 0.8 10 ^3/uL (0-1.3); Monocytes % (auto) 9.6 % (0.0-12.0); Neutrophils # (auto) 6.4 10 ^3/uL (1.6-8.6); Neutrophils % (auto) 72.3 % (37.0-80.0); Nucleated Red Blood Cells % 0.1 %; Red Cell Distribution Width 16.9 % (11.8-14.3); White Blood Cell 8.8 10^3/uL (4.4-10.8)
[2022-01-02 04:23] LABS: Albumin 1.4 g/dL (3.4-5.0); BUN/Creatinine Ratio 26.7; Bilirubin, Total 0.3 mg/dL (0.2-1.0); Calcium 8.9 mg/dL (8.5-10.1); Total Protein 6.3 g/dL (6.4-8.2)
[2022-01-02] MEDS: POTASSIUM CHL 20MEQ/100ML 100 ML IV SCH ×2 (05:00→06:53)
[2022-01-02] MEDS: SODIUM CHLORIDE 0.9% 1,000 ML IV SCH ×3 (05:34→20:19)
[2022-01-02] MEDS: PIPERACILLIN-TAZOB 3.375GM 100 ML IV SCH ×3 (06:07→22:46)
[2022-01-02] MEDS: HCTZ 25 MG TAB PO SCH (09:20)
[2022-01-02] MEDS: APIXABAN 5 MG TAB PO SCH ×2 (09:21→22:46)
[2022-01-02] MEDS ORDERED: ENOXAPARIN SOD 40 MG/0.4 ML SYRINGE SC SCH (10:00)
[2022-01-02 10:14] LABS: Urine Bacteria MOD /hpf (None Seen); Urine Blood 3+ /uL (Negative); Urine Hyaline Cast FEW /lpf (0 - 2); Urine Mucus FEW (None Seen); Urine Specific Gravity 1.018 (1.001-1.035); Urine WBC 188 /hpf (0 - 5)
[2022-01-02] MEDS: MORPHINE SULFATE 4 MG/ML SYR/VIAL IV PRN (11:03)
[2022-01-02] MEDS: HYDROmorphone HCL 2 MG/ML VL/or syr IV PRN ×3 (13:27→23:30)
[2022-01-02 18:39] VITALS: BP 129/61
[2022-01-02 18:41] VITALS: BP 132/72
[2022-01-02 22:00] VITALS: BP 104/43
[2022-01-03] MEDS: MORPHINE SULFATE INJ 2 MG/ml SYRG IV PRN ×3 (01:35→21:29)
[2022-01-03] MEDS: SODIUM CHLORIDE 0.9% 1,000 ML IV SCH (04:54)
[2022-01-03] MEDS: PIPERACILLIN-TAZOB 3.375GM 100 ML IV SCH ×2 (04:57→15:31)
[2022-01-03 05:00] VITALS: BP 102/44
[2022-01-03 06:48] LABS: Basophils # (auto) 0 10 ^3/uL (0-0.2); Eosinophils # (auto) 0.1 10 ^3/uL (0-0.8); Hemoglobin 7.9 g/dL (12.2-16.2); Red Blood Cells 3.08 10^6/uL (4.0-5.20)
[2022-01-03 06:50] LABS: Basophils % (auto) 0.1 % (0.0-2.0); Eosinophils % (auto) 0.9 % (0.0-7.0); Hematocrit 25.8 % (36.0-46.0); Lymphocytes % (auto) 24.1 % (10.0-50.0); Mean Corpuscular Hemoglobin 25.8 pg (28.0-32.0); Mean Corpuscular Hgb Conc. 30.7 g/dL (32.0-36.0); Monocytes # (auto) 1.1 10 ^3/uL (0-1.3); Monocytes % (auto) 12.9 % (0.0-12.0); Neutrophils # (auto) 5.1 10 ^3/uL (1.6-8.6); White Blood Cell 8.2 10^3/uL (4.4-10.8)
[2022-01-03 07:07] LABS: Calcium 9.1 mg/dL (8.5-10.1); Potassium 3.1 mmol/L (3.5-5.1)
[2022-01-03 07:10] LABS: BUN/Creatinine Ratio 38.5
[2022-01-03 09:00] VITALS: BP 120/68
[2022-01-03] MEDS: APIXABAN 5 MG TAB PO SCH ×2 (09:57→21:55)
[2022-01-03] MEDS: HCTZ 25 MG TAB PO SCH (09:57)
[2022-01-03] MEDS: HYDROmorphone HCL 2 MG/ML VL/or syr IV PRN ×4 (09:58→23:15)
[2022-01-03 13:00] VITALS: BP 112/67
[2022-01-03] MEDS ORDERED: VANCOMYCIN PER PHARMACY 0 MG IV SCH (13:30)
[2022-01-03] MEDS: VANCOMYCIN 1GM/250ML 250 ML IV SCH (13:47)
[2022-01-03 17:00] VITALS: BP 102/57
[2022-01-03] MEDS ORDERED: POTASSIUM CHL 20MEQ/100ML 100 ML IV ONE (19:30)
[2022-01-03] MEDS ORDERED: cefTRIAXone 1GM/50ML D5W 50 ML IV ONE (19:45)
[2022-01-03 22:00] VITALS: BP 113/54
[2022-01-04] MEDS: VANCOMYCIN 1GM/250ML 250 ML IV SCH ×2 (01:00→14:10)
[2022-01-04] MEDS: MORPHINE SULFATE INJ 2 MG/ml SYRG IV PRN ×2 (02:04→06:34)
[2022-01-04 05:00] VITALS: BP 110/57
[2022-01-04] MEDS ORDERED: cefTRIAXone 1GM/50ML D5W 50 ML IV SCH (09:00)
[2022-01-04] MEDS: HCTZ 25 MG TAB PO SCH (09:21)
[2022-01-04] MEDS: APIXABAN 5 MG TAB PO SCH (09:21)
[2022-01-04] MEDS ORDERED: oxyCODONE HCL 5MG TAB PO PRN (10:00)
[2022-01-04] MEDS: SODIUM CHLORIDE 0.9% 1,000 ML IV SCH (10:40)
[2022-01-04 13:49] VITALS: BP 110/80
== END 2022-01-04 17:32 | disposition home or self-care (01) | DRG 380 ==
LOC: ER 06:08 → EDBD 06:08 → TELE 15:46 → TELE-CENTR 01-02 16:54
PROVIDERS: ADMIT Registered Nurse; ATTEND Internal Medicine Pulmonary Disease
DX: L89.154 Pressure ulcer of sacral region, stage 4 (principal); L89.213 Pressure ulcer of right hip, stage 3; R65.10 Systemic inflammatory response syndrome (SIRS) of non-infectious origin without acute organ dysfunction; I11.0 Hypertensive heart disease with heart failure; L89.510 Pressure ulcer of right ankle, unstageable; I50.9 Heart failure, unspecified; E87.6 Hypokalemia; F17.210 Nicotine dependence, cigarettes, uncomplicated; Z82.0 Family history of epilepsy and other diseases of the nervous system; Z82.3 Family history of stroke; Z82.49 Family history of ischemic heart disease and other diseases of the circulatory system; Z86.73 Personal history of transient ischemic attack (TIA), and cerebral infarction without residual deficits; Z86.79 Personal history of other diseases of the circulatory system; Z88.8 Allergy status to other drugs, medicaments and biological substances
CPT/HCPCS: 36415; 80048; 80053; 81001; 83880; 85025; 85610; 87077; 87086; 87186; 87205; 96365; 96367; 96375; G0378; J0696; J2405; J2543; J3480

== ENCOUNTER 2022-01-08 10:12 | Inpatient (IN) | payer MEDICAID ==
[~2022-01-08] VITALS: Ht 165.1 cm; Wt 53.0 kg
[2022-01-08] MEDS ORDERED: SODIUM CHLORIDE 0.9% 1,000 ML IV ONE (11:15)
[2022-01-08] MEDS ORDERED: SODIUM CHLORIDE 0.9% 500 ML IV ONE (11:15)
[2022-01-08] MEDS ORDERED: HYDROmorphone HCL 2 MG/ML VL/or syr IV ONE ×2 (11:15→13:30)
[2022-01-08] MEDS ORDERED: ONDANSETRON HCL 4 MG/2 ML VIAL IV ONE (11:15)
[2022-01-08 12:15] LABS: Basophils # (auto) 0.3 10 ^3/uL (0-0.2); Basophils % (auto) 3.1 % (0.0-2.0); Eosinophils # (auto) 0.1 10 ^3/uL (0-0.8); Eosinophils % (auto) 0.8 % (0.0-7.0); Hematocrit 25.8 % (36.0-46.0); Lymphocytes # (auto) 1.3 10 ^3/uL (0.4-5.4); Mean Corpuscular Hemoglobin 25.4 pg (28.0-32.0); Mean Corpuscular Hgb Conc. 31.2 g/dL (32.0-36.0); Mean Corpuscular Volume 81.4 fL (80.0-100.0); Monocytes # (auto) 0.5 10 ^3/uL (0-1.3); Monocytes % (auto) 5.2 % (0.0-12.0); Neutrophils # (auto) 6.8 10 ^3/uL (1.6-8.6); Neutrophils % (auto) 75.9 % (37.0-80.0); Nucleated Red Blood Cells % 0.1 %; Red Blood Cells 3.17 10^6/uL (4.0-5.20); Red Cell Distribution Width 16.8 % (11.8-14.3)
[2022-01-08 12:26] LABS: Urine Bacteria FEW /hpf (None Seen); Urine Blood 2+ /uL (Negative); Urine Budding Yeast FEW /hpf (None Seen); Urine Mucus FEW (None Seen); Urine Specific Gravity 1.018 (1.001-1.035); Urine WBC 242 /hpf (0 - 5)
[2022-01-08 12:47] LABS: Albumin 1.5 g/dL (3.4-5.0); Calcium 8.9 mg/dL (8.5-10.1); Magnesium 1.7 mg/dL (1.6-2.6)
[2022-01-08 12:52] LABS: Potassium 2.5 mmol/L (3.5-5.1)
[2022-01-08 12:53] LABS: BUN/Creatinine Ratio 76.5; Bilirubin, Total 0.4 mg/dL (0.2-1.0); Total Protein 6.9 g/dL (6.4-8.2)
[2022-01-08] MEDS ORDERED: POTASSIUM EFFERVESENT TAB 25 MEQ GT ONE (13:00)
[2022-01-08] MEDS ORDERED: POTASSIUM EFFERVESENT TAB 25 MEQ PO ONE (13:00)
[2022-01-08] MEDS ORDERED: cefTRIAXone 1GM/50ML D5W 50 ML IV ONE (13:30)
[2022-01-08] MEDS ORDERED: D5W/SOD CHL 0.45%/KCL 40MEQ 1,000 ML IV ONE (15:00)
[2022-01-08] MEDS ORDERED: VANCOMYCIN PER PHARMACY 0 MG IV SCH (15:00)
[2022-01-08] MEDS ORDERED: PIPERACILLIN-TAZOB 3.375GM 100 ML IV SCH (15:07)
[2022-01-08] MEDS ORDERED: VANCOMYCIN 1GM/250ML 250 ML IV ONE (15:15)
[2022-01-08] MEDS: MORPHINE SULFATE INJ 2 MG/ml SYRG IV PRN ×2 (16:50→22:00)
[2022-01-08] MEDS: VANCOMYCIN 1GM/250ML 250 ML IV SCH (16:51)
[2022-01-08 17:00] VITALS: BP 125/62
[2022-01-08 18:01] VITALS: BP 125/62
[2022-01-08] MEDS ORDERED: CIPR500T4 PO (19:55)
[2022-01-08] MEDS ORDERED: NITR0.4S29 SL (19:55)
[2022-01-08] MEDS: PIPERACILLIN-TAZOB 3.375GM 100 ML IV SCH (20:00)
[2022-01-08 22:00] VITALS: BP 125/69
[2022-01-09] MEDS ORDERED: VANCOMYCIN 1GM/250ML 250 ML IV SCH (02:00)
[2022-01-09] MEDS: VANCOMYCIN 1GM/250ML 250 ML IV SCH (02:21)
[2022-01-09] MEDS: MORPHINE SULFATE INJ 2 MG/ml SYRG IV PRN ×4 (02:22→20:27)
[2022-01-09] MEDS: PIPERACILLIN-TAZOB 3.375GM 100 ML IV SCH (03:53)
[2022-01-09 05:00] VITALS: BP 138/71
[2022-01-09 06:42] LABS: Eosinophils # (auto) 0.1 10 ^3/uL (0-0.8); Hemoglobin 7.6 g/dL (12.2-16.2); Mean Corpuscular Hemoglobin 25.7 pg (28.0-32.0); Monocytes # (auto) 0.9 10 ^3/uL (0-1.3); Neutrophils # (auto) 5.4 10 ^3/uL (1.6-8.6); Neutrophils % (auto) 64.5 % (37.0-80.0); White Blood Cell 8.4 10^3/uL (4.4-10.8)
[2022-01-09 06:44] LABS: Basophils # (auto) 0 10 ^3/uL (0-0.2); Basophils % (auto) 0.3 % (0.0-2.0); Eosinophils % (auto) 1.3 % (0.0-7.0); Hematocrit 23.5 % (36.0-46.0); Lymphocytes % (auto) 23.5 % (10.0-50.0); Mean Corpuscular Hgb Conc. 32.2 g/dL (32.0-36.0); Monocytes % (auto) 10.4 % (0.0-12.0); Nucleated Red Blood Cells % 0.1 %; Red Blood Cells 2.93 10^6/uL (4.0-5.20); Red Cell Distribution Width 16.9 % (11.8-14.3)
[2022-01-09 06:59] LABS: Albumin 1.4 g/dL (3.4-5.0); Calcium 8.4 mg/dL (8.5-10.1); Potassium 3.4 mmol/L (3.5-5.1)
[2022-01-09 07:01] LABS: BUN/Creatinine Ratio 46.7; Bilirubin, Total 0.2 mg/dL (0.2-1.0); Total Protein 6.3 g/dL (6.4-8.2)
[2022-01-09 08:05] VITALS: BP 128/65
[2022-01-09 09:09] VITALS: BP 128/65
[2022-01-09] MEDS: ENOXAPARIN SOD 40 MG/0.4 ML SYRINGE SC SCH (10:25)
[2022-01-09 19:30] VITALS: BP 128/65
[2022-01-09 20:01] VITALS: BP 128/65
[2022-01-09] MEDS: HYDROcodone-ACET 5/325MG TAB PO PRN (20:28)
[2022-01-09 22:00] VITALS: BP 144/78
[2022-01-10] MEDS: MORPHINE SULFATE INJ 2 MG/ml SYRG IV PRN ×3 (00:30→08:59)
[2022-01-10] MEDS: HYDROcodone-ACET 5/325MG TAB PO PRN ×2 (00:30→04:36)
[2022-01-10 05:00] VITALS: BP 137/78
[2022-01-10] MEDS: POTASSIUM EFFERVESENT TAB 25 MEQ PO ONE ×2 (08:57→09:04)
[2022-01-10] MEDS: ENOXAPARIN SOD 40 MG/0.4 ML SYRINGE SC SCH (08:58)
[2022-01-10 09:00] VITALS: BP 122/66
[2022-01-10] MEDS ORDERED: HYDROmorphone HCL 2 MG/ML VL/or syr IV ONE (09:45)
[2022-01-10] MEDS ORDERED: ONDANSETRON HCL 4 MG/2 ML VIAL IM ONE (12:00)
[2022-01-10 12:02] VITALS: BP 122/66
[2022-01-10] MEDS ORDERED: Juven Orange Powder PACKET 27.5gm PO SCH (18:00)
[2022-01-10] MEDS ORDERED: Pro-Stat SF 30ml Vanilla PO SCH (18:00)
== END 2022-01-10 13:25 | disposition home health service (06) | DRG 380 ==
LOC: ER 10:12 → EDBD 10:12 → OVERFLOW 14:57 → CENTRAL 16:10
PROVIDERS: ADMIT Registered Nurse; ATTEND Internal Medicine Pulmonary Disease
DX: L89.154 Pressure ulcer of sacral region, stage 4 (principal); E43 Unspecified severe protein-calorie malnutrition; G82.20 Paraplegia, unspecified; L89.519 Pressure ulcer of right ankle, unspecified stage; I11.0 Hypertensive heart disease with heart failure; I50.9 Heart failure, unspecified; D64.9 Anemia, unspecified; E87.6 Hypokalemia; F17.210 Nicotine dependence, cigarettes, uncomplicated; F32.A Depression, unspecified; F41.9 Anxiety disorder, unspecified; L89.324 Pressure ulcer of left buttock, stage 4; L89.314 Pressure ulcer of right buttock, stage 4; N39.0 Urinary tract infection, site not specified; L89.610 Pressure ulcer of right heel, unstageable; G89.4 Chronic pain syndrome; M46.28 Osteomyelitis of vertebra, sacral and sacrococcygeal region; Z20.822 Contact with and (suspected) exposure to COVID-19; Z74.01 Bed confinement status; Z93.3 Colostomy status; Z91.19 Patient's noncompliance with other medical treatment and regimen; Z68.1 Body mass index [BMI] 19.9 or less, adult; Z82.0 Family history of epilepsy and other diseases of the nervous system; Z82.3 Family history of stroke; Z82.49 Family history of ischemic heart disease and other diseases of the circulatory system; Z86.73 Personal history of transient ischemic attack (TIA), and cerebral infarction without residual deficits; Z88.1 Allergy status to other antibiotic agents
CPT/HCPCS: 36415; 71045; 72131; 80053; 80202; 81001; 83735; 85025; 87040; 87086; 87088; 87186; 87205; 96361; 96374; 96375; G0378; J0696; J2405; J2543

== ENCOUNTER 2022-02-10 05:08 | Emergency (ER) | payer MEDICAID ==
[~2022-02-10] VITALS: Ht 165.1 cm; Wt 60.0 kg
[~2022-02-10 05:08] MED LIST changes: +NITR0.4S29 SL
[2022-02-10] MEDS ORDERED: IOHEXOL 300 MG/ML 100ML BOTTLE IJ ONE (05:21)
[2022-02-10] MEDS ORDERED: MORPHINE SULFATE 4 MG/ML SYR/VIAL IV ONE ×2 (06:30→09:30)
[2022-02-10] MEDS ORDERED: ONDANSETRON HCL 4 MG/2 ML VIAL IV ONE (06:30)
[2022-02-10] MEDS ORDERED: VANCOMYCIN PER PHARMACY 0 MG IV SCH (06:45)
[2022-02-10] MEDS ORDERED: PIPERACILLIN-TAZO 4.5GM 100 ML IV ONE (06:45)
[2022-02-10] MEDS ORDERED: VANCOMYCIN 1GM/250ML 250 ML IV ONE (07:00)
[2022-02-10 07:38] LABS: Basophils # (auto) 0 10 ^3/uL (0-0.2); Eosinophils # (auto) 0.1 10 ^3/uL (0-0.8); Monocytes # (auto) 0.9 10 ^3/uL (0-1.3); Nucleated Red Blood Cells % 0.1 %
[2022-02-10 07:40] LABS: Basophils % (auto) 0.1 % (0.0-2.0); Eosinophils % (auto) 0.8 % (0.0-7.0); Hematocrit 29.4 % (36.0-46.0); Hemoglobin 9.7 g/dL (12.2-16.2); Lymphocytes # (auto) 1.8 10 ^3/uL (0.4-5.4); Lymphocytes % (auto) 23.2 % (10.0-50.0); Mean Corpuscular Hgb Conc. 32.9 g/dL (32.0-36.0); Mean Corpuscular Volume 79.2 fL (80.0-100.0); Neutrophils # (auto) 5.1 10 ^3/uL (1.6-8.6); Neutrophils % (auto) 64.9 % (37.0-80.0); Red Blood Cells 3.71 10^6/uL (4.0-5.20); Red Cell Distribution Width 15.5 % (11.8-14.3); White Blood Cell 7.8 10^3/uL (4.4-10.8)
[2022-02-10 07:48] LABS: Albumin 1.8 g/dL (3.4-5.0); Calcium 9.5 mg/dL (8.5-10.1)
[2022-02-10 07:51] LABS: BUN/Creatinine Ratio 61.5; Bilirubin, Total 0.3 mg/dL (0.2-1.0); Total Protein 7.2 g/dL (6.4-8.2)
[2022-02-10 08:16] LABS: INR 1.03 (0.9-1.15); Partial Thromboplastin Time 29.5 sec (24.6-33.4)
[2022-02-10 10:11] VITALS: BP 142/76
[2022-02-10] MEDS ORDERED: OXY10CRT PO (12:22)
[2022-02-10] MEDS ORDERED: OXYC15TA77 PO (12:30)
== END 2022-02-10 14:51 | disposition home or self-care (01) ==
LOC: EDUNIT# 05:08 → EDBD 05:08 → ER 05:08
DX: L89.154 Pressure ulcer of sacral region, stage 4 (principal); I11.0 Hypertensive heart disease with heart failure; I50.9 Heart failure, unspecified; F17.210 Nicotine dependence, cigarettes, uncomplicated; Z79.899 Other long term (current) drug therapy; Z88.8 Allergy status to other drugs, medicaments and biological substances; Z20.822 Contact with and (suspected) exposure to COVID-19
CPT/HCPCS: 36415; 80053; 83605; 84484; 85025; 85610; 85730; 87040; 87077; 87186; 87205; 87426; 93005; 96365; 96366; 96368; 96375; 96376; 99285; J2270; J2543; J3370